=== PATIENT | female | born 1950 | race Caucasian/White ===

== ENCOUNTER 2017-01-22 10:46 | Emergency (ER) | payer OTHER, MEDICAID ==
[~2017-01-22] VITALS: Ht 152.4 cm; Wt 78.0 kg
[~2017-01-22 10:46] MED LIST: AMIT24CA9 PO; AZAT50 PO; BETH25 PO; C 50TAB PO; CALC500T42 PO; CHOL1TAB35 PO; DICY10CA12 PO; FURO1TAB62 PO; IPRASOL INH; LEVO.15 PO; LYRI100C PO; MULTCAP13 PO; NEXI40CA PO; OMEGCAP19 PO; PROC10TA PO; PROM2SUP RECTAL; SPIRCAP INH; SUCR1TAB PO; SYMB160A INH; TIZA4TAB PO; TRAM50TA PO; VENTAER INH; ZYRT10CA PO
[2017-01-22 11:28] VITALS: BP 101/69; PULSE 128; RESP 20; TEMP 100.3; O2SAT 97
[2017-01-22] MEDS ORDERED: SODIUM CHLOR 0.9% 1000 ML INJ 1,000 ML IV SCH (12:18)
--- NOTE | 2017-01-22 12:26 | PD ---
HPI Chief Complaint: Respiratory Symptoms Time Seen by Provider: 12:10 Travel History International Travel<30 days: No Contact w/Intl Traveler<30days: No Traveled to known affect area: No History of Present Illness HPI 66-year-old female complains of abdominal pain with nausea vomiting. Patient states that symptoms started 2 days ago. Patient states the abdominal pain is cramping pain and sharp pain diffuse over the abdomen. Patient denies any pain radiation. Patient states that she had fever at home. Patient denies any dysuria or frequency. Patient denies any vaginal discharge or bleeding. Patient has history of COPD and complains of shortness of breath for the past 2 days also. Patient states that she has coughing congestion for the past several days also. Patient has history of autoimmune hepatitis and on medication for that. Patient status post cholecystectomy and ovarian removal in the past. Patient has history of hypertension, diabetes, hyperlipidemia. PFSH Past Medical History Arthritis: Yes Asthma: No Autoimmune Disease: Yes (GRAVES, HEP B) Anxiety: Yes Depression: Yes Heart Rhythm Problems: No Cancer: Yes (CERVICAL x 2, 1984 and 1994) Cardiac Catheterization: Yes (OCT 2005) Cardiovascular Problems: Yes (HTN on meds) High Cholesterol: Yes Chemotherapy: No Chest Pain: Yes (none since cardiac cath) Congestive Heart Failure: No COPD: Yes Cerebrovascular Accident: No Diabetes: Yes (type 2) Diminished Hearing: No Endocrine: Yes Fibromyalgia: Yes Gastrointestinal Disorders: Yes GERD: Yes Genitourinary: Yes Headaches: Yes (DAILY) Hepatitis: Yes (AUTOIMMUNE HEP B) Hiatal Hernia: Yes Hypertension: No Immune Disorder: Yes Kidney Stones: No Musculoskeletal: Yes (CHRONIC BACK & NECK PAIN) Neurologic: Yes (BILATERAL LL NEUROPATHY) Psychiatric: Yes Reproductive: No Respiratory: Yes (copd) Immunizations Current: Yes Migraines: Yes Pneumonia: Yes Radiation Therapy: No Renal Failure: No Seizures: Yes Sickle Cell Disease: No Sleep Apnea: Yes (home cpap machine) Thyroid Disease: Yes (GRAVES DISEASE) Ulcer: No ?: Not Menopausal: Yes : 3 Para: 3 Tubal Ligation: Yes (1973) Past Surgical History Abdominal Surgery: Yes (CHOLECYSTECTOMY) Arteriovenous Shunt: No Body Medical Devices: plates and screws in head Cardiac Surgery: Yes (cardiac cath- no stents 2007) Cholecystectomy: Yes Ear Surgery: No Endocrine Surgery: No Eye Surgery: Yes (BILAT EYE SX TO RAISE LOWER LIDS) Genitourinary Surgery: No Gynecologic Surgery: Yes (RIGHT OVARY REMOVED) Insulin Pump: No Joint Replacement: Yes (L elbow 2013) Neurologic Surgery: Yes (CRANIOTOMY 1995, NERVE STIMULATOR 2004 removed 2013, 3 LEVEL CERVICAL FUSIO) Oral Surgery: No Pacemaker: No Thoracic Surgery: Yes (LEFT LUMPECTOMY 2000, BREAST NEEDLE ASPIRATION) Other Surgery: Yes (SINUS SURGERY WITH CRANIOTOMY) Family History Family Hypercholesterolemia: Yes (SISTER) Social History Alcohol Use: No Tobacco Use: No (QUIT 1995) Substance Use: No Allergies-Medications (Allergen,Severity, Reaction): Coded Allergies: bee venom protein (honey bee) (Unverified Allergy, Severe, DIFFICULTY BREATHING, 01/22/17) . divalproex sodium (Unverified Allergy, Severe, 01/22/17) REACTION NOT GIVEN house dust (Unverified Allergy, Severe, 01/22/17) loratadine (Unverified Allergy, Severe, 01/22/17) REACTION NIT GIVEN meperidine (Unverified Allergy, Severe, 01/22/17) REACTION NOT GIVEN oxcarbazepine (Unverified Allergy, Severe, 01/22/17) REACTION NOT GIVEN phenytoin (Unverified Allergy, Severe, 01/22/17) REACTION NOT GIVEN sumatriptan (Unverified Allergy, Intermediate, SOB, CHEST TIGHTNESS, ) topiramate (Unverified Allergy, Intermediate, Hives, 01/22/17) celecoxib (Unverified Allergy, Mild, PALPITATIONS, 01/22/17) amitriptyline (Unverified Allergy, Unknown, 01/22/17) chlordiazepoxide (Unverified Allergy, Unknown, 01/22/17) lamotrigine (Unverified Allergy, Unknown, 01/22/17) REACTION NOT GIVEN sertraline (Unverified Adverse Reaction, Intermediate, "SPACED OUT", ) acetaminophen (Unverified Adverse Reaction, Mild, CONSTIPATION, 01/22/17) levetiracetam (Unverified Adverse Reaction, Mild, "SPACED OUT", 01/22/17) oxycodone (Unverified Adverse Reaction, Mild, CONSTIPATION, 01/22/17) Uncoded Allergies: NSAIDS (Allergy, Severe, 01/22/17) .. combivent (Allergy, Severe, severe nausea and vomiting, 01/22/17) . ARTHROTEC (Allergy, Mild, 01/22/17) .. Reported Meds & Prescriptions Reported Meds & Active Scripts Active Reported Multi-Vitamin Daily (Multiple Vitamin) 1 Tab Tab 1 Tab PO DAILY Cymbalta DR (Duloxetine HCl) 60 Mg Capdr 60 Mg PO DAILY Gabapentin 600 Mg Tab 600 Mg PO TID Gabapentin 600 Mg Tab 600 Mg PO TID Gabapentin 600 Mg Tab 600 Mg PO BID Lisinopril 10 Mg Tab 10 Mg PO HS Urecholine (Bethanechol Chloride) 25 Mg Tab 25 Mg PO TID Tramadol (Tramadol HCl) 50 Mg Tab 100 Mg PO Q8HR Spiriva Handihaler (Tiotropium Inh) 18 Mcg Cap 18 Mcg INH DAILY 1 capsule = 18 mcg Synthroid (Levothyroxine Sodium) 150 Mcg Tab 150 Mcg PO DAILY Sucralfate 1 Gm Tab 1 Gm PO QID on empty stomach Prochlorperazine Maleate 10 Mg Tab 10 Mg PO TID PRN Rippey 3-6-9 Complex (Rippey 3 Fatty Acids-Rippey 6 FA) 1 Cap Cap 1 Cap PO BID Lyrica (Pregabalin) 100 Mg Cap 100 Mg PO TID Amitiza (Lubiprostone) 24 Mcg Cap 24 Mg PO BID Nexium (Esomeprazole DR) 40 Mg Capdr 40 Mg PO DAILY Dicyclomine (Dicyclomine HCl) 10 Mg Cap 10 Mg PO QID D 2000 (Cholecalciferol) 2,000 Unit Tab 5,000 Units PO DAILY Azathioprine 50 Mg Tab 150 Mg PO DAILY Hazardous agent use appropriate precautions for handling and disposal. C 500 (Ascorbic Acid) 500 Mg Tab 1 Tab PO BID Duoneb (Ipratropium-Albuterol Neb) 0.5-2.5 Mg/3 Ml Neb 1 Nebule INH Q4HR NEB PRN Ventolin Hfa 18 GM Inh (Albuterol Sulfate) 90 Mcg/Act Aer 2 Puff INH BID PRN Review of Systems General / Constitutional: No: Fever Eyes: No: Visual changes HENT: No: Headaches Cardiovascular: No: Chest Pain or Discomfort Respiratory: Positive: Shortness of Breath Gastrointestinal: Positive: Nausea, Vomiting, Abdominal Pain Genitourinary: No: Dysuria Musculoskeletal: No: Pain Skin: No Rash Neurologic: No: Weakness Psychiatric: No: Depression Endocrine: No: Polydipsia Hematologic/Lymphatic: No: Easy Bruising Physical Exam Narrative GENERAL: Well-nourished, well-developed patient. SKIN: Focused skin assessment warm/dry. HEAD: Normocephalic. EYES: No scleral icterus. No injection or drainage. NECK: Supple, trachea midline. No JVD or lymphadenopathy. CARDIOVASCULAR: Regular rate and rhythm without murmurs, gallops, or rubs. RESPIRATORY: Breath sounds equal bilaterally. No accessory muscle use. GASTROINTESTINAL: Abdomen soft, nondistended. Patient has moderate diffuse tenderness over the abdomen. No rebound tenderness. No mass. MUSCULOSKELETAL: No cyanosis, or edema. BACK: Nontender without obvious deformity. No CVA tenderness. Neurologic exam normal. Data Data Last Documented VS Vital Signs Date Time Temp Pulse Resp B/P (MAP) Pulse Ox O2 Delivery O2 Flow Rate FiO2 01/22/17 13:05 105 24 132/80 (97) 96 Room Air 01/22/17 11:28 100.3 Orders Orders Urinalysis - C+S If Indicated (01/22/17 11:06) Complete Blood Count With Diff (01/22/17 12:18) Comprehensive Metabolic Panel (01/22/17 12:18) Lipase (01/22/17 12:18) Prothrombin Time / Inr (Pt) (01/22/17 12:18) Act Partial Throm Time (Ptt) (01/22/17 12:18) Ct Abd/Pel W Iv Contrast(Rout) (01/22/17 12:18) Iv Access Insert/Monitor (01/22/17 12:18) Ecg Monitoring (01/22/17 12:18) Oximetry (01/22/17 12:18) Morphine Inj (Morphine Inj) (01/22/17 12:30) Ondansetron Inj (Zofran Inj) (01/22/17 12:30) Sodium Chlor 0.9% 1000 Ml Inj (Ns 1000 M (01/22/17 12:18) Sodium Chloride 0.9% Flush (Ns Flush) (01/22/17 12:30) Famotidine Inj (Pepcid Inj) (01/22/17 12:30) Influenzae A/B Antigen (01/22/17 12:37) Chest, Single Ap (01/22/17 12:37) Albuterol-Ipratropium Neb (Duoneb Neb) (01/22/17 12:45) Iohexol 350 Inj (Omnipaque 350 Inj) (01/22/17 13:40) Labs Laboratory Tests Test 01/22/17 12:40 White Blood Count 7.3 TH/MM3 Red Blood Count 4.40 MIL/MM3 Hemoglobin 13.7 GM/DL Hematocrit 40.5 % Mean Corpuscular Volume 92.0 FL Mean Corpuscular Hemoglobin 31.1 PG Mean Corpuscular Hemoglobin Concent 33.8 % Red Cell Distribution Width 13.4 % Platelet Count 166 TH/MM3 Mean Platelet Volume 10.8 FL Neutrophils (%) (Auto) 84.8 % Lymphocytes (%) (Auto) 6.6 % Monocytes (%) (Auto) 7.3 % Eosinophils (%) (Auto) 0.9 % Basophils (%) (Auto) 0.4 % Neutrophils # (Auto) 6.2 TH/MM3 Lymphocytes # (Auto) 0.5 TH/MM3 Monocytes # (Auto) 0.5 TH/MM3 Eosinophils # (Auto) 0.1 TH/MM3 Basophils # (Auto) 0.0 TH/MM3 CBC Comment DIFF FINAL Differential Comment Prothrombin Time 10.4 SEC Prothromb Time International Ratio 1.0 RATIO Activated Partial Thromboplast Time 26.7 SEC Blood Urea Nitrogen 17 MG/DL Creatinine 0.86 MG/DL Random Glucose 106 MG/DL Total Protein 7.4 GM/DL Albumin 3.8 GM/DL Calcium Level 9.1 MG/DL Alkaline Phosphatase 68 U/L Aspartate Amino Transf (AST/SGOT) 92 U/L Alanine Aminotransferase (ALT/SGPT) 79 U/L Total Bilirubin 0.4 MG/DL Sodium Level 140 MEQ/L Potassium Level 3.8 MEQ/L Chloride Level 105 MEQ/L Carbon Dioxide Level 23.8 MEQ/L Anion Gap 11 MEQ/L Estimat Glomerular Filtration Rate 66 ML/MIN Lipase 182 U/L MDM Medical Decision Making Medical Screen Exam Complete: Yes Emergency Medical Condition: Yes Interpretation(s) 13 38 PM. Last Impressions Chest X-Ray 01/22/17 2277 Signed Impressions: Service Date/Time: Sunday, January 22, 2017 12:50 - CONCLUSION: 1. No acute abnormality or significant interval change. Tomas Gutierrez MD 1338 PM. CBC within normal limits. CMP within normal limit. Patient is positive for influenza A antigen. 1408 p.m. Last Impressions Chest X-Ray 01/22/17 1237 Signed Impressions: Service Date/Time: Sunday, January 22, 2017 12:50 - CONCLUSION: 1. No acute abnormality or significant interval change. Tomas Gutierrez MD Abdomen/Pelvis CT 01/22/17 1218 Signed Impressions: Service Date/Time: Sunday, January 22, 2017 13:25 - CONCLUSION: 1. No acute findings in the abdomen or pelvis. 2. Mild diffusely decreased hepatic attenuation consistent with hepatic steatosis. 3. Status post cholecystectomy with mild stable CBD distention consistent with reservoir effect. 4. Additional stable ancillary findings, see above. Tomas Gutierrez MD Differential Diagnosis Differential diagnosis including gastroenteritis, gastritis, PUD, appendicitis, colitis, UTI, pyelonephritis, nephrolithiasis. Narrative Course 66-year-old female with abdominal pain, nausea vomiting. Normal saline solution 125 cc an hour. Pepcid 20 mg IV. Morphine 4 mg IV. Zofran 4 mg IV. Albuterol with Atrovent unit dose treatment times one. Diagnosis Primary Impression: Influenza A Additional Impressions: Abdominal pain Qualified Codes: R10.84 - Generalized abdominal pain Gastroenteritis COPD with acute exacerbation Patient Instructions: General Instructions Additional Instructions: Z-Jackson as needed for persistent productive cough. Fluid bed rest. Follow-up with personal physician. Return if worse. Use albuterol inhaler as needed for shortness of breath. Take medication as needed for nausea vomiting. Med/Other Pt SpecificInfo: Prescription(s) given Scripts Azithromycin (Zithromax Z-Jackson) 250 Mg Dspk 250 MG PO DIRECTED for Infection, #1 DSPK 0 Refills 500 MG (2 tabs) day 1, then 1 tab days 2-5. Prov: Og Funes MD 01/22/17 Ondansetron Odt (Zofran Odt) 4 Mg Tab 4 MG SL Q6HR Y for Nausea/Vomiting, #10 TAB 0 Refills Prov: Og Funes MD 01/22/17 [Phenergan W Codein] No Conflict Check 10 ML PO Q6HR for Cough, #120 Prov: Og Funes MD 12/9/17 Disposition: 01 DISCHARGE HOME Condition: Stable Og Funes MD Jan 22, 2017 12:26
[2017-01-22] MEDS ORDERED: ONDANSETRON HCL 4 MG/2 ML VIAL IVP ONE (12:30)
[2017-01-22] MEDS ORDERED: MORPHINE SULFATE 4 MG/ML INJ IV PUSH ONE (12:30)
[2017-01-22] MEDS ORDERED: FAMOTIDINE 20 MG/2 ML VIAL IV PUSH ONE (12:30)
[2017-01-22] MEDS ORDERED: SODIUM CHLORIDE 0.9% FLUSH 10 ML FLUSH IV FLUSH PRN (12:30)
[2017-01-22 12:44] VITALS: O2SAT 96
[2017-01-22] MEDS ORDERED: RESP: ALBUTEROL 2.5 MG/IPRATROPIUM 0.5 MG NEB (SCH) INH ONE (12:45)
[2017-01-22 12:51] LABS: AUTOMATED NEUTROPHIL # 6.2 TH/MM3 (1.8-7.7); BASOPHIL % 0.4 % (0.0-2.0); EOSINOPHIL # 0.1 TH/MM3 (0-0.4); EOSINOPHIL % 0.9 % (0.0-4.0); HEMATOCRIT 40.5 % (35.0-46.0); HEMO FLAGS DIFF FINAL; LYMPH % 6.6 % (9.0-44.0); LYMPHOCYTE # 0.5 TH/MM3 (1.0-4.8); MEAN CORPUSCULAR HEMOGLOBIN 31.1 PG (27.0-34.0); MEAN CORPUSCULAR HGB CONC 33.8 % (32.0-36.0); MONO % 7.3 % (0.0-8.0); NEUT % 84.8 % (16.0-70.0); PLATELET COUNT 166 TH/MM3 (150-450); RED CELL DISTRIBUTION WIDTH 13.4 % (11.6-17.2); WHITE BLOOD COUNT 7.3 TH/MM3 (4.0-11.0)
--- NOTE | 2017-01-22 12:59 | RADRPT ---
EXAM DATE/TIME: 01/22/2017 12:50 [facility] COMPARISON: CHEST SINGLE AP, January 03, 2015, 12:55. INDICATIONS : Short of breath, cough, chest pains MEDICAL HISTORY : Chronic obstructive pulmonary disease. SURGICAL HISTORY : None. ENCOUNTER: Initial ACUITY: 2 days PAIN SCORE: 5/10 LOCATION: Bilateral chest FINDINGS: A single view of the chest demonstrates the lungs to be symmetrically aerated without evidence of mas s, infiltrate or effusion. The cardiomediastinal contours are unremarkable. Lower cervical spinal fi xation hardware. Remainder of the exam is unchanged. CONCLUSION: 1. No acute abnormality or significant interval change. Tomas Gutierrez MD on January 22, 2017 at 12:56 Board Certified Radiologist. This report was verified electronically.
[2017-01-22 13:00] LABS: CHLORIDE 105 MEQ/L (98-107); POTASSIUM 3.8 MEQ/L (3.5-5.1); SODIUM (NA) 140 MEQ/L (136-145)
[2017-01-22 13:05] VITALS: BP 132/80; PULSE 105; RESP 24; O2SAT 96
[2017-01-22 13:06] LABS: ANION GAP 11 MEQ/L (5-15); BICARBONATE 23.8 MEQ/L (21.0-32.0); BLOOD UREA NITROGEN 17 MG/DL (7-18)
[2017-01-22 13:07] LABS: APTT (PATIENT) 26.7 SEC (24.3-30.1); PROTHROMBIN TIME - PATIENT 10.4 SEC (9.8-11.6)
[2017-01-22 13:09] LABS: ALT (GPT) 79 U/L (10-53); AST (GOT) 92 U/L (15-37); GLOMERULAR FILTRATION RATE 66 ML/MIN (>89)
[2017-01-22 13:10] LABS: TOTAL BILIRUBIN ADULT 0.4 MG/DL (0.2-1.0)
[2017-01-22 13:11] LABS: ALKALINE PHOSPHATASE 68 U/L (45-117)
[2017-01-22] MEDS ORDERED: IOHEXOL 350 MG/ML 10 ML VIAL (for RAD DIAG) IVCONTRAST ONE (13:40)
[2017-01-22 13:45] VITALS: BP 133/69; PULSE 106; RESP 20; TEMP 98.9; O2SAT 97
--- NOTE | 2017-01-22 13:47 | RADRPT ---
EXAM DATE/TIME: 01/22/2017 13:25 [facility] COMPARISON: CT ABDOMEN & PELVIS W CONTRAST, September 25, 2013, 1:16. INDICATIONS : Cough, congestion, abdominal pain, nausea, vomiting. IV CONTRAST: 80 cc Omnipaque 350 (iohexol) IV ORAL CONTRAST: No oral contrast ingested. RADIATION DOSE: 11.06 CTDIvol (mGy) MEDICAL HISTORY : Cardiovascular disease. Hypertension. Graves, neuropathy lower extremities, SURGICAL HISTORY : Craniotomy. Cholecystectomy.Cervical fusion, left lumpectomy, right ovary. ENCOUNTER: Initial ACUITY: 2 days PAIN SCALE: 10/10 LOCATION: abdominal TECHNIQUE: Volumetric scanning of the abdomen and pelvis was performed. Using automated exposure control and ad justment of the mA and/or kV according to patient size, radiation dose was kept as low as reasonably achievable to obtain optimal diagnostic quality images. DICOM format image data is available electro nically for review and comparison. FINDINGS: LOWER LUNGS: The visualized lower lungs are clear. LIVER: Mild diffuse decreased hepatic attenuation without evidence for volume loss or intrahepatic ductal di latation. Gallbladder surgically absent with stable prominence of the common bile duct, likely due to reservoir effect. SPLEEN: Normal size without lesion. PANCREAS: Within normal limits. KIDNEYS: Stable subcentimeter hypodense cystic lesion in the anterior mid left kidney which is too small to ch aracterize. Kidneys otherwise demonstrate symmetrical enhancement without evidence for radiopaque magda al calculi or hydronephrosis. ADRENAL GLANDS: Within normal limits. VASCULAR: Atherosclerotic calcifications of the distal abdominal aorta. BOWEL/MESENTERY: The stomach, small bowel, and colon demonstrate no acute abnormality. Appendix is visualized and norm al in appearance. There is no free intraperitoneal air or fluid. ABDOMINAL WALL: Small periumbilical anterior abdominal wall fat containing hernia. RETROPERITONEUM: There is no lymphadenopathy. BLADDER: No wall thickening or mass. REPRODUCTIVE: Within normal limits. INGUINAL: There is no lymphadenopathy or hernia. MUSCULOSKELETAL: Within normal limits for patient age. Interval removal of neurostimulator. CONCLUSION: 1. No acute findings in the abdomen or pelvis. 2. Mild diffusely decreased hepatic attenuation consistent with hepatic steatosis. 3. Status post cholecystectomy with mild stable CBD distention consistent with reservoir effect. 4. Additional stable ancillary findings, see above. Tomas Gutierrez MD on January 22, 2017 at 13:40 Board Certified Radiologist. This report was verified electronically.
[2017-01-22] MEDS ORDERED: GABA600T PO ×2 (13:52)
[2017-01-22] MEDS ORDERED: CYMB60CA PO (13:52)
[2017-01-22] MEDS ORDERED: LISI10TA3 PO (13:52)
[2017-01-22] MEDS ORDERED: MULT-65 PO (13:52)
[2017-01-22] MEDS ORDERED: ZITHTAB PO (14:16)
[2017-01-22] MEDS ORDERED: PHENERGAN W CODEIN PO (14:16)
[2017-01-22] MEDS ORDERED: ZOFR4TAB3 SL (14:16)
[2017-01-22 14:45] VITALS: BP 117/74
== END 2017-01-22 14:50 | disposition home or self-care (01) ==
LOC: PHED 10:46
DX: J09.X2 Influenza due to identified novel influenza A virus with other respiratory manifestations (principal); R10.84 Generalized abdominal pain; K52.9 Noninfective gastroenteritis and colitis, unspecified; J44.1 Chronic obstructive pulmonary disease with (acute) exacerbation; R50.9 Fever, unspecified; K75.4 Autoimmune hepatitis; I10 Essential (primary) hypertension; E11.9 Type 2 diabetes mellitus without complications; E78.00 Pure hypercholesterolemia, unspecified; F41.8 Other specified anxiety disorders; M79.7 Fibromyalgia; K21.9 Gastro-esophageal reflux disease without esophagitis; G62.9 Polyneuropathy, unspecified
CPT/HCPCS: 71010; 74177; 80053; 83690; 85025; 85610; 85730; 87804; 94640; 96361; 96374; 96375; 99285; J2270; J2405; J7030; Q9967

== ENCOUNTER 2017-03-02 13:54 | Observation (INO) | payer MEDICAID, OTHER ==
[~2017-03-02] VITALS: Ht 152.4 cm; Wt 85.0 kg
[~2017-03-02 13:54] MED LIST changes: -CALC500T42 PO; +CYMB60CA PO; -FURO1TAB62 PO; +GABA600T PO; +LISI10TA3 PO; +MULT-65 PO; -MULTCAP13 PO; +PHENERGAN W CODEIN PO; -PROM2SUP RECTAL; -SYMB160A INH; -TIZA4TAB PO; +ZITHTAB PO; +ZOFR4TAB3 SL; -ZYRT10CA PO
[2017-03-02 13:58] VITALS: BP 85/54; PULSE 56; RESP 16; TEMP 97.9; O2SAT 98
--- NOTE | 2017-03-02 14:13 | PD ---
HPI Chief Complaint: Dizziness Time Seen by Provider: 13:59 Travel History International Travel<30 days: No Contact w/Intl Traveler<30days: No Traveled to known affect area: No History of Present Illness HPI This 66-year-old female was not home today when she started feeling lightheaded. She checked her blood pressure several times as consistently around 80/40. She has on medication for high blood pressure. She had some diarrhea yesterday and vomited twice this morning. She is not aware of fever or chills. She has a history of COPD has had a bit of a cough. She feels weak all over. He is not having chest pain. She has some epigastric discomfort. She has a history of hypertension his on lisinopril. She also takes propranolol for headache. She did take propranolol this morning. She believes it is 20 mg PFSH Past Medical History Arthritis: Yes Asthma: No Autoimmune Disease: Yes (GRAVES, HEP B) Anxiety: Yes Depression: Yes Heart Rhythm Problems: No Cancer: Yes (CERVICAL x 2, 1984 and 1994) Cardiac Catheterization: Yes (OCT 2005) Cardiovascular Problems: Yes (HTN on meds) High Cholesterol: Yes Chemotherapy: No Chest Pain: Yes (none since cardiac cath) Congestive Heart Failure: No COPD: Yes Cerebrovascular Accident: No Diabetes: Yes (type 2) Patient Takes Glucophage: No Diminished Hearing: No Endocrine: Yes Fibromyalgia: Yes Gastrointestinal Disorders: Yes GERD: Yes Genitourinary: Yes Headaches: Yes (DAILY) Hepatitis: Yes (AUTOIMMUNE HEP B) Hiatal Hernia: Yes Hypertension: Yes Immune Disorder: Yes Kidney Stones: No Medical other: Yes (REFLUX,FIBROMYALGIA, SPINAL STENOSIS) Musculoskeletal: Yes (CHRONIC BACK & NECK PAIN) Neurologic: Yes (BILATERAL LL NEUROPATHY) Psychiatric: Yes Reproductive: No Respiratory: Yes (copd) Immunizations Current: Yes Migraines: Yes Pneumonia: Yes Radiation Therapy: No Renal Failure: No Seizures: Yes Sickle Cell Disease: No Sleep Apnea: Yes (home cpap machine) Thyroid Disease: Yes (GRAVES DISEASE) Ulcer: No Tetanus Vaccination: Unknown Influenza Vaccination: No ?: Not Menopausal: Yes : 3 Para: 3 Tubal Ligation: Yes (1973) Past Surgical History Abdominal Surgery: Yes (CHOLECYSTECTOMY) Arteriovenous Shunt: No Body Medical Devices: plates and screws in head Cardiac Surgery: Yes (cardiac cath- no stents 2007) Cholecystectomy: Yes Ear Surgery: No Endocrine Surgery: No Eye Surgery: Yes (BILAT EYE SX TO RAISE LOWER LIDS) Genitourinary Surgery: No Gynecologic Surgery: Yes (RIGHT OVARY REMOVED) Insulin Pump: No Joint Replacement: Yes (L elbow 2013) Neurologic Surgery: Yes (CRANIOTOMY 1995, NERVE STIMULATOR 2005 removed 2013, 3 LEVEL CERVICAL FUSIO) Oral Surgery: No Pacemaker: No Thoracic Surgery: Yes (LEFT LUMPECTOMY 2000, BREAST NEEDLE ASPIRATION, BREAST ERDUCTION) Other Surgery: Yes (SINUS SURGERY WITH CRANIOTOMY, NEURO STIMULATOR IMPLANTAION /REMOVAL) Family History Family Hypercholesterolemia: Yes (SISTER) Social History Alcohol Use: No Tobacco Use: No (QUIT 1995) Substance Use: No Allergies-Medications (Allergen,Severity, Reaction): Coded Allergies: bee venom protein (honey bee) (Unverified Allergy, Severe, DIFFICULTY BREATHING, 01/22/17) . divalproex sodium (Unverified Allergy, Severe, 01/22/17) REACTION NOT GIVEN house dust (Unverified Allergy, Severe, 01/22/17) loratadine (Unverified Allergy, Severe, 01/22/17) REACTION NIT GIVEN meperidine (Unverified Allergy, Severe, 01/22/17) REACTION NOT GIVEN oxcarbazepine (Unverified Allergy, Severe, 01/22/17) REACTION NOT GIVEN phenytoin (Unverified Allergy, Severe, 01/22/17) REACTION NOT GIVEN sumatriptan (Unverified Allergy, Intermediate, SOB, CHEST TIGHTNESS, ) topiramate (Unverified Allergy, Intermediate, Hives, 01/22/17) celecoxib (Unverified Allergy, Mild, PALPITATIONS, 01/22/17) amitriptyline (Unverified Allergy, Unknown, 01/22/17) chlordiazepoxide (Unverified Allergy, Unknown, 01/22/17) lamotrigine (Unverified Allergy, Unknown, 01/22/17) REACTION NOT GIVEN sertraline (Unverified Adverse Reaction, Intermediate, "SPACED OUT", ) acetaminophen (Unverified Adverse Reaction, Mild, CONSTIPATION, 01/22/17) levetiracetam (Unverified Adverse Reaction, Mild, "SPACED OUT", 01/22/17) oxycodone (Unverified Adverse Reaction, Mild, CONSTIPATION, 01/22/17) Uncoded Allergies: NSAIDS (Allergy, Severe, 01/22/17) .. combivent (Allergy, Severe, severe nausea and vomiting, 01/22/17) . ARTHROTEC (Allergy, Mild, 01/22/17) .. Reported Meds & Prescriptions Reported Meds & Active Scripts Active Zofran Odt (Ondansetron Odt) 4 Mg Tab 4 Mg SL Q6HR PRN Reported Multi-Vitamin Daily (Multiple Vitamin) 1 Tab Tab 1 Tab PO DAILY Cymbalta DR (Duloxetine HCl) 60 Mg Capdr 60 Mg PO DAILY Gabapentin 600 Mg Tab 600 Mg PO TID Lisinopril 10 Mg Tab 10 Mg PO HS Tramadol (Tramadol HCl) 50 Mg Tab 100 Mg PO Q8HR Synthroid (Levothyroxine Sodium) 150 Mcg Tab 150 Mcg PO DAILY Sucralfate 1 Gm Tab 1 Gm PO QID on empty stomach Prochlorperazine Maleate 10 Mg Tab 10 Mg PO TID PRN Nexium (Esomeprazole DR) 40 Mg Capdr 40 Mg PO DAILY Dicyclomine (Dicyclomine HCl) 10 Mg Cap 10 Mg PO QID D 2000 (Cholecalciferol) 2,000 Unit Tab 5,000 Units PO DAILY Azathioprine 50 Mg Tab 150 Mg PO DAILY Hazardous agent use appropriate precautions for handling and disposal. C 500 (Ascorbic Acid) 500 Mg Tab 1 Tab PO BID Duoneb (Ipratropium-Albuterol Neb) 0.5-2.5 Mg/3 Ml Neb 1 Nebule INH Q4HR NEB PRN Ventolin Hfa 18 GM Inh (Albuterol Sulfate) 90 Mcg/Act Aer 2 Puff INH BID PRN Review of Systems General / Constitutional: No: Fever, Chills Eyes: No: Diploplia HENT: Positive: Headaches Cardiovascular: No: Chest Pain or Discomfort, Palpitations Respiratory: No: Cough, Shortness of Breath Gastrointestinal: Positive: Vomiting, Diarrhea Skin: No Rash Neurologic: Positive: Weakness, Dizziness Psychiatric: No: Anxiety Hematologic/Lymphatic: No: Easy Bruising Physical Exam Narrative GENERAL: Female. On arrival her heart rate as 60 in the blood pressures 80/40 SKIN: Focused skin assessment warm/dry. HEAD: Atraumatic. Normocephalic. EYES: Pupils equal and round. No scleral icterus. No injection or drainage. ENT: No nasal bleeding or discharge. Mucous membranes pink and moist. NECK: Trachea midline. No JVD. CARDIOVASCULAR: Regular rate and rhythm. No murmur appreciated. RESPIRATORY: No accessory muscle use. Clear to auscultation. Breath sounds equal bilaterally. GASTROINTESTINAL: Abdomen soft, non-tender, nondistended. Hepatic and splenic margins not palpable. Rectal exam shows brown stool with guaiac negative MUSCULOSKELETAL: No obvious deformities. No clubbing. No cyanosis. No edema. NEUROLOGICAL: Awake and alert. No obvious cranial nerve deficits. Motor grossly within normal limits. Normal speech. PSYCHIATRIC: Appropriate mood and affect; insight and judgment normal. Data Data Last Documented VS Vital Signs Date Time Temp Pulse Resp B/P (MAP) Pulse Ox O2 Delivery O2 Flow Rate FiO2 03/02/17 15:55 60 16 100/48 (65) 98 Room Air 03/02/17 13:58 97.9 Orders Orders Complete Blood Count With Diff (03/02/17 14:10) Comprehensive Metabolic Panel (03/02/17 14:10) Ua Includes Microscopic (03/02/17 14:10) Chest, Single Ap (03/02/17 14:10) Albuterol-Ipratropium Neb (Duoneb Neb) (03/02/17 14:15) Sodium Chlor 0.9% 1000 Ml Inj (Ns 1000 M (03/02/17 14:15) Lipase (03/02/17 14:10) Electrocardiogram (03/02/17 14:13) Troponin I (03/02/17 14:13) Sodium Chlor 0.9% 1000 Ml Inj (Ns 1000 M (03/02/17 16:00) Labs Laboratory Tests Test 03/02/17 14:41 White Blood Count 5.9 TH/MM3 Red Blood Count 3.53 MIL/MM3 Hemoglobin 11.0 GM/DL Hematocrit 33.5 % Mean Corpuscular Volume 95.1 FL Mean Corpuscular Hemoglobin 31.1 PG Mean Corpuscular Hemoglobin Concent 32.7 % Red Cell Distribution Width 15.7 % Platelet Count 388 TH/MM3 Mean Platelet Volume 8.3 FL Neutrophils (%) (Auto) 67.0 % Lymphocytes (%) (Auto) 21.2 % Monocytes (%) (Auto) 7.5 % Eosinophils (%) (Auto) 2.0 % Basophils (%) (Auto) 2.3 % Neutrophils # (Auto) 4.1 TH/MM3 Lymphocytes # (Auto) 1.2 TH/MM3 Monocytes # (Auto) 0.4 TH/MM3 Eosinophils # (Auto) 0.1 TH/MM3 Basophils # (Auto) 0.1 TH/MM3 CBC Comment DIFF FINAL Differential Comment Blood Urea Nitrogen 19 MG/DL Creatinine 0.86 MG/DL Random Glucose 66 MG/DL Total Protein 6.3 GM/DL Albumin 3.0 GM/DL Calcium Level 8.1 MG/DL Alkaline Phosphatase 75 U/L Aspartate Amino Transf (AST/SGOT) 14 U/L Alanine Aminotransferase (ALT/SGPT) 16 U/L Total Bilirubin 0.2 MG/DL Sodium Level 137 MEQ/L Potassium Level 4.0 MEQ/L Chloride Level 103 MEQ/L Carbon Dioxide Level 25.8 MEQ/L Anion Gap 8 MEQ/L Estimat Glomerular Filtration Rate 66 ML/MIN Troponin I LESS THAN 0.02 NG/ML Lipase 160 U/L MDM Medical Decision Making Medical Screen Exam Complete: Yes Emergency Medical Condition: Yes Medical Record Reviewed: Yes Differential Diagnosis Differential includes dehydration, allergic reaction, GI bleed Narrative Course EKG shows sinus bradycardia rate of 54 without acute changes. Hemoglobin as 11 with a white count of 5.9. Sodium 137 potassium 4.0. BUN 19 creatinine 0.6 patient has been given IV fluid in her blood pressures improved from 80/40 to 100/50. I suspect the low blood pressures secondary to excessive medications heart rate as slow. I do not see any evidence of sepsis. He does have multiple allergies but does not recall any exposure has not had any rash or other symptoms. He did have some vomiting in the diarrhea may have some mild dehydration aggravating blood pressure Diagnosis Primary Impression: Dehydration Admitting Information Admitting Physician Requests: Admit Disposition: 01 DISCHARGE HOME Condition: Stable Jason Tao MD Mar 02, 2017 14:13
[2017-03-02] MEDS ORDERED: SODIUM CHLOR 0.9% 1000 ML INJ 1,000 ML IV ONE ×2 (14:15→16:00)
[2017-03-02] MEDS ORDERED: RESP: ALBUTEROL 2.5 MG/IPRATROPIUM 0.5 MG NEB (SCH) NEB ONE (14:15)
[2017-03-02 14:47] LABS: AUTOMATED NEUTROPHIL # 4.1 TH/MM3 (1.8-7.7); BASOPHIL # 0.1 TH/MM3 (0-0.2); BASOPHIL % 2.3 % (0.0-2.0); EOSINOPHIL # 0.1 TH/MM3 (0-0.4); HEMATOCRIT 33.5 % (35.0-46.0); LYMPH % 21.2 % (9.0-44.0); LYMPHOCYTE # 1.2 TH/MM3 (1.0-4.8); MEAN CELL VOLUME 95.1 FL (80.0-100.0); MEAN CORPUSCULAR HEMOGLOBIN 31.1 PG (27.0-34.0); MEAN CORPUSCULAR HGB CONC 32.7 % (32.0-36.0); MEAN PLATELET VOLUME 8.3 FL (7.0-11.0); MONO % 7.5 % (0.0-8.0); MONOCYTE # 0.4 TH/MM3 (0-0.9); PLATELET COUNT 388 TH/MM3 (150-450); RED BLOOD COUNT 3.53 MIL/MM3 (4.00-5.30); RED CELL DISTRIBUTION WIDTH 15.7 % (11.6-17.2); WHITE BLOOD COUNT 5.9 TH/MM3 (4.0-11.0)
--- NOTE | 2017-03-02 14:53 | RADRPT ---
EXAM DATE/TIME: 03/02/2017 14:45 [facility] COMPARISON: CHEST SINGLE AP, January 22, 2017, 12:50. INDICATIONS : Short of breath MEDICAL HISTORY : Cardiovascular disease. Hypertension. Graves, neuropathy lower extremities SURGICAL HISTORY : Fusion, cervical. Left lumpectomy ENCOUNTER: Initial ACUITY: 2 days PAIN SCORE: 0/10 LOCATION: Bilateral chest FINDINGS: A single view of the chest demonstrates the lungs to be symmetrically aerated without evidence of mas s, infiltrate or effusion. The cardiomediastinal contours are unremarkable. Osseous structures are intact. CONCLUSION: Mild diffuse interstitial prominence the lungs likely related to smoking. Pedro Crawford MD on March 02, 2017 at 14:50 Board Certified Radiologist. This report was verified electronically.
[2017-03-02 14:57] LABS: CHLORIDE 103 MEQ/L (98-107); SODIUM (NA) 137 MEQ/L (136-145)
[2017-03-02 15:01] LABS: BICARBONATE 25.8 MEQ/L (21.0-32.0); BLOOD UREA NITROGEN 19 MG/DL (7-18); CALCIUM 8.1 MG/DL (8.5-10.1); GLUCOSE,RANDOM 66 MG/DL (74-106); LIPASE 160 U/L (73-393)
[2017-03-02 15:04] LABS: ALT (GPT) 16 U/L (10-53); AST (GOT) 14 U/L (15-37); CREATININE 0.86 MG/DL (0.50-1.00); GLOMERULAR FILTRATION RATE 66 ML/MIN (>89)
[2017-03-02 15:06] LABS: TOTAL BILIRUBIN ADULT 0.2 MG/DL (0.2-1.0); TOTAL PROTEIN 6.3 GM/DL (6.4-8.2)
[2017-03-02 15:07] LABS: ALKALINE PHOSPHATASE 75 U/L (45-117)
[2017-03-02 15:55] VITALS: BP 100/48; PULSE 60; RESP 16; O2SAT 98
[2017-03-02] MEDS ORDERED: DEXTROSE 50% IN WATER 50 ML VIAL(D50) IV PUSH PRN (16:45)
[2017-03-02] MEDS ORDERED: NALOXONE HCL 0.4 MG/ML AMP IV PUSH PRN (16:45)
[2017-03-02] MEDS ORDERED: SODIUM CHLORIDE 0.9% FLUSH 10 ML FLUSH IV FLUSH PRN (16:45)
[2017-03-02] MEDS ORDERED: ACETAMINOPHEN 325 MG TAB PO PRN (16:45)
[2017-03-02] MEDS ORDERED: GLUCAGON 1 MG/ML VIAL OTHER PRN (16:45)
[2017-03-02] MEDS ORDERED: ONDANSETRON HCL 4 MG/2 ML VIAL IVP PRN (16:45)
[2017-03-02] MEDS ORDERED: RESP: ALBUTEROL 2.5 MG/IPRATROPIUM 0.5 MG NEB (PRN) INH (16:45)
[2017-03-02] MEDS ORDERED: MAGNESIUM HYDROXIDE SUSP 30 ML CUP PO PRN (16:45)
[2017-03-02 16:58] LABS: BILIRUBIN, URINE NEG (NEG); BLOOD, URINE NEG (NEG); GLUCOSE,URINE NEG (NEG); KETONE, URINE NEG (NEG); NITRITE,URINE NEG (NEG); URINE LEUKOCYTE ESTERASE NEG (NEG)
[2017-03-02] MEDS: SODIUM CHLOR 0.9% 1000 ML INJ 1,000 ML IV SCH (17:00)
[2017-03-02] MEDS: INSULIN ASPART SUPPLEMENTAL SCALE SQ SCH ×2 (17:00→20:46)
--- NOTE | 2017-03-02 17:01 | HHI.HP ---
[facility] Benjamin Collins M.D. Admission Diagnosis DEHYDRATION, ADVERSE MEDICATION REACTION Diagnoses: Chief Complaint: Weakness Travel History International Travel<30 Days: No Contact w/Intl Traveler <30 Da: No Traveled to Known Affected Are: No History of Present Illness This patient is a 66-year-old female with a history of hypertension and diabetes. She also has Graves' disease and is status post radiation for thyroid. She says she had one day of lightheadedness and checked her blood pressure at home. Blood pressure was 80/40. She normally takes blood pressure medications including lisinopril. He and periodically takes propanolol for headache. She did take the medicine this morning because she woke up with a headache. Last night she had some diarrhea. She notes no other difficulties. She's not had fever or chills. And the patient has come to the emergency room for further evaluation due to persistent dizziness. Her blood pressure was quite low with 100/48. Patient was very dizzy. Labs are otherwise unremarkable. She has no pain complaint at this time. She is recommended for observation due to low blood pressure with dizziness Review of Systems Constitutional: COMPLAINS OF: Dizziness, DENIES: Diaphoretic episodes, Fatigue , Fever, Weight gain, Chills, Change in appetite, Night Sweats Endocrine: DENIES: Abnorml menstrual pattern, Heat/cold intolerance, Polydipsia , Polyuria, Polyphagia Eyes: DENIES: Blurred vision, Diplopia, Eye inflammation, Eye pain, Vision loss , Photosensitivity, Double Vision Ears, nose, mouth, throat: DENIES: Tinnitus, Hearing loss, Vertigo, Nasal discharge, Oral lesions, Throat pain, Hoarseness, Ear Pain, Running Nose, Epistaxis, Sinus Pain, Toothache, Odynophagia Respiratory: DENIES: Apneas, Cough, Snoring, Wheezing, Hemoptysis, Sputum production, Shortness of breath Cardiovascular: DENIES: Chest pain, Palpitations, Syncope, Dyspnea on Exertion , PND, Lower Extremity Edema, Orthopnea, Claudication Gastrointestinal: COMPLAINS OF: Diarrhea, DENIES: Abdominal pain, Black stools , Bloody stools, Constipation, Nausea, Vomiting, Difficulty Swallowing, Anorexia Genitourinary: DENIES: Abnormal vaginal bleeding, Dysmenorrhea, Dyspareunia, Sexual dysfunction, Urinary frequency, Urinary incontinence, Urgency, Hematuria , Dysuria, Nocturia, Vaginal discharge Musculoskeletal: DENIES: Joint pain, Muscle aches, Stiffness, Joint Swelling, Back pain, Neck pain Integumentary: DENIES: Abnormal pigmentation, Pruritus, Rash, Nail changes, Breast masses, Breast skin changes, Nipple discharge Hematologic/lymphatic: DENIES: Bruising, Lymphadenopathy Immunologic/allergic: DENIES: Eczema, Urticaria Neurologic: DENIES: Abnormal gait, Headache, Localized weakness, Paresthesias, Seizures, Speech Problems, Tremor, Poor Balance Psychiatric: DENIES: Anxiety, Confusion, Mood changes, Depression, Hallucinations, Agitation, Suicidal Ideation, Homicidal Ideation, Delusions Except as stated in HPI: all other systems reviewed are Neg Past Family Social History Past Medical History Hypertension Hypothyroidism Dyspepsia Fibromyalgia COPD Diabetes mellitus type 2 Autoimmune hepatitis Chronic headache Past Surgical History Back surgery, neck fusion, cholecystectomy Craniotomy Nerve stimulator placed and removed Reported Medications Reviewed in the EMR, no new medications Allergies: Coded Allergies: bee venom protein (honey bee) (Unverified Allergy, Severe, DIFFICULTY BREATHING, 01/22/17) . divalproex sodium (Unverified Allergy, Severe, 01/22/17) REACTION NOT GIVEN house dust (Unverified Allergy, Severe, 01/22/17) loratadine (Unverified Allergy, Severe, 01/22/17) REACTION NIT GIVEN meperidine (Unverified Allergy, Severe, 01/22/17) REACTION NOT GIVEN oxcarbazepine (Unverified Allergy, Severe, 01/22/17) REACTION NOT GIVEN phenytoin (Unverified Allergy, Severe, 01/22/17) REACTION NOT GIVEN sumatriptan (Unverified Allergy, Intermediate, SOB, CHEST TIGHTNESS, ) topiramate (Unverified Allergy, Intermediate, Hives, 01/22/17) celecoxib (Unverified Allergy, Mild, PALPITATIONS, 01/22/17) amitriptyline (Unverified Allergy, Unknown, 01/22/17) chlordiazepoxide (Unverified Allergy, Unknown, 01/22/17) lamotrigine (Unverified Allergy, Unknown, 01/22/17) REACTION NOT GIVEN sertraline (Unverified Adverse Reaction, Intermediate, "SPACED OUT", ) acetaminophen (Unverified Adverse Reaction, Mild, CONSTIPATION, 01/22/17) levetiracetam (Unverified Adverse Reaction, Mild, "SPACED OUT", 01/22/17) oxycodone (Unverified Adverse Reaction, Mild, CONSTIPATION, 01/22/17) Uncoded Allergies: NSAIDS (Allergy, Severe, 01/22/17) .. combivent (Allergy, Severe, severe nausea and vomiting, 01/22/17) . ARTHROTEC (Allergy, Mild, 01/22/17) .. Active Ordered Medications Reviewed in the EMR Family History Mother had hypertension Social History Quit tobacco 20 years ago, no alcohol, lives with her Physical Exam Vital Signs Vital Signs Date Time Temp Pulse Resp B/P (MAP) Pulse Ox O2 Delivery O2 Flow Rate FiO2 03/02/17 15:55 60 16 100/48 (65) 98 Room Air 03/02/17 13:58 97.9 56 16 85/54 (64) 98 Physical Exam GENERAL: This is a well-nourished, well-developed patient, in no apparent distress. SKIN: No rashes, ecchymoses or lesions. Cool and dry. HEAD: Atraumatic. Normocephalic. No temporal or scalp tenderness. EYES: exopthalmus, Pupils equal round and reactive. Extraocular motions intact. No scleral icterus. No injection or drainage. ENT: Nose without bleeding, purulent drainage or septal hematoma. Throat without erythema, tonsillar hypertrophy or exudate. Uvula midline. Airway patent. NECK: Trachea midline. No JVD or lymphadenopathy. Supple, nontender, no meningeal signs. CARDIOVASCULAR: Sinus bradycardia without murmurs, gallops, or rubs. RESPIRATORY: Clear to auscultation. Breath sounds equal bilaterally. No wheezes , rales, or rhonchi. GASTROINTESTINAL: Abdomen soft, non-tender, nondistended. No hepato-splenomegaly , or palpable masses. No guarding. MUSCULOSKELETAL: Extremities without clubbing, cyanosis, or edema. No joint tenderness, effusion, or edema noted. No calf tenderness. Negative Homans sign bilaterally. NEUROLOGICAL: Awake and alert. Cranial nerves II through XII intact. Motor and sensory grossly within normal limits. Five out of 5 muscle strength in all muscle groups. Normal speech. Laboratory Laboratory Tests Test 03/02/17 14:41 03/02/17 16:45 White Blood Count 5.9 Red Blood Count 3.53 Hemoglobin 11.0 Hematocrit 33.5 Mean Corpuscular Volume 95.1 Mean Corpuscular Hemoglobin 31.1 Mean Corpuscular Hemoglobin Concent 32.7 Red Cell Distribution Width 15.7 Platelet Count 388 Mean Platelet Volume 8.3 Neutrophils (%) (Auto) 67.0 Lymphocytes (%) (Auto) 21.2 Monocytes (%) (Auto) 7.5 Eosinophils (%) (Auto) 2.0 Basophils (%) (Auto) 2.3 Neutrophils # (Auto) 4.1 Lymphocytes # (Auto) 1.2 Monocytes # (Auto) 0.4 Eosinophils # (Auto) 0.1 Basophils # (Auto) 0.1 CBC Comment DIFF FINAL Differential Comment Blood Urea Nitrogen 19 Creatinine 0.86 Random Glucose 66 Total Protein 6.3 Albumin 3.0 Calcium Level 8.1 Alkaline Phosphatase 75 Aspartate Amino Transf (AST/SGOT) 14 Alanine Aminotransferase (ALT/SGPT) 16 Total Bilirubin 0.2 Sodium Level 137 Potassium Level 4.0 Chloride Level 103 Carbon Dioxide Level 25.8 Anion Gap 8 Estimat Glomerular Filtration Rate 66 Troponin I LESS THAN 0.02 Lipase 160 Result Diagram: 03/02/17 1441 03/02/17 1441 Imaging Last Impressions Chest X-Ray 03/02/17 1410 Signed Impressions: Service Date/Time: Thursday, March 02, 2017 14:45 - CONCLUSION: Mild diffuse interstitial prominence the lungs likely related to smoking. Pedro Crawford MD Septic Shock Reassessment Septic shock perfusion: reassessment completed Caprini VTE Risk Assessment Caprini VTE Risk Assessment: Mod/High Risk (score >= 2) Caprini Risk Assessment Model Point Value = 1 Point Value = 2 Point Value = 3 Point Value = 5 Age 41-60 Minor surgery BMI > 25 kg/m2 Swollen legs Varicose veins or History of unexplained or recurrent spontaneous Oral contraceptives or hormone replacement Sepsis (< 1 month) Serious lung disease, including pneumonia (< 1 month) Abnormal pulmonary function Acute myocardial infarction Congestive heart failure (< 1 month) History of inflammatory bowel disease Medical patient at bed rest Age 61-74 Arthroscopic surgery Major open surgery (> 45 min) Laparoscopic surgery (> 45 min) Malignancy Confined to bed (> 72 hours) Immobilizing plaster cast Central venous access Age >= 75 History of VTE Family history of VTE Factor V Leiden Prothrombin [id number] Lupus anticoagulant Anticardiolipin antibodies Elevated serum homocysteine Heparin-induced thrombocytopenia Other congenital or acquired thrombophilia Stroke (< 1 month) Elective arthroplasty Hip, pelvis, or leg fracture Acute spinal cord injury (< 1 month) Prophylaxis Regimen Total Risk Factor Score Risk Level Prophylaxis Regimen 0-1 Low Early ambulation 2 Moderate Order ONE of the following: *Sequential Compression Device (SCD) *Heparin 5000 units SQ BID 3-4 Higher Order ONE of the following medications: *Heparin 5000 units SQ TID *Enoxaparin/Lovenox 40 mg SQ daily (WT < 150 kg, CrCl > 30 mL/min) *Enoxaparin/Lovenox 30 mg SQ daily (WT < 150 kg, CrCl > 10-29 mL/min) *Enoxaparin/Lovenox 30 mg SQ BID (WT < 150 kg, CrCl > 30 mL/min) AND/OR *Sequential Compression Device (SCD) 5 or more Highest Order ONE of the following medications: *Heparin 5000 units SQ TID (Preferred with Epidurals) *Enoxaparin/Lovenox 40 mg SQ daily (WT < 150 kg, CrCl > 30 mL/min) *Enoxaparin/Lovenox 30 mg SQ daily (WT < 150 kg, CrCl > 10-29 mL/min) *Enoxaparin/Lovenox 30 mg SQ BID (WT < 150 kg, CrCl > 30 mL/min) AND *Sequential Compression Device (SCD) Assessment and Plan Problem List: (1) Dehydration ICD Code: E86.0 - Dehydration Status: Acute Plan: Patient appears dehydrated and is hypotensive and is probably orthostatic Will continue with IV hydration and hold her home blood pressure medications Was 85/54 and appears to have improved with IV hydration which we will continue overnight (2) Autoimmune hepatitis ICD Code: K75.4 - Autoimmune hepatitis Status: Chronic (3) COPD (chronic obstructive pulmonary disease) ICD Code: J44.9 - Chronic obstructive pulmonary disease, unspecified Status: Acute Assessment and Plan Plan of care to be determined by Hospital course Code Status Full code Discussed Condition With Patient, Cynthia Villegas M.D., MD Mar 02, 2017 17:01
[2017-03-02 17:19] LABS: SQUAMOUS EPITHELIAL CELL URINE 0-5 /hpf (0-5); URINE COLOR YELLOW (YELLW/STRAW)
[2017-03-02 17:20] LABS: RENAL EPITHELIAL CELLS 0-5 /hpf
[2017-03-02 17:45] VITALS: BP 111/71; PULSE 56; RESP 20; TEMP 97.1; O2SAT 100
[2017-03-02] MEDS: DICYCLOMINE HCL 10 MG CAP PO SCH ×2 (18:07→20:47)
[2017-03-02] MEDS: SUCRALFATE 1 GM TAB PO SCH ×2 (18:07→20:47)
[2017-03-02] MEDS: GABAPENTIN 300 MG CAP PO SCH (18:07)
[2017-03-02 20:00] VITALS: BP 124/57; PULSE 65; RESP 20; TEMP 97.5; O2SAT 97
[2017-03-02] MEDS: SODIUM CHLORIDE 0.9% FLUSH 10 ML FLUSH IV FLUSH SCH (20:42)
[2017-03-02] MEDS: traMADol HCL 50 MG TAB PO SCH (20:47)
[2017-03-03] VITALS: BP 134/65; PULSE 70; RESP 20; TEMP 97.9; O2SAT 96
[2017-03-03] MEDS: SODIUM CHLOR 0.9% 1000 ML INJ 1,000 ML IV SCH (04:16)
[2017-03-03] MEDS ORDERED: LEVOTHYROXINE SODIUM 150 MCG TAB PO SCH (06:00)
[2017-03-03] MEDS: traMADol HCL 50 MG TAB PO SCH (06:00)
[2017-03-03 06:13] LABS: AUTOMATED NEUTROPHIL # 3.3 TH/MM3 (1.8-7.7); BASOPHIL % 0.5 % (0.0-2.0); EOSINOPHIL # 0.1 TH/MM3 (0-0.4); EOSINOPHIL % 2.1 % (0.0-4.0); HEMATOCRIT 34.7 % (35.0-46.0); HEMOGLOBIN 11.4 GM/DL (11.6-15.3); LYMPH % 27.2 % (9.0-44.0); LYMPHOCYTE # 1.4 TH/MM3 (1.0-4.8); MEAN CELL VOLUME 94.1 FL (80.0-100.0); MEAN CORPUSCULAR HEMOGLOBIN 30.9 PG (27.0-34.0); MEAN CORPUSCULAR HGB CONC 32.8 % (32.0-36.0); MEAN PLATELET VOLUME 8.8 FL (7.0-11.0); MONO % 6.5 % (0.0-8.0); MONOCYTE # 0.3 TH/MM3 (0-0.9); NEUT % 63.7 % (16.0-70.0); PLATELET COUNT 394 TH/MM3 (150-450); RED BLOOD COUNT 3.68 MIL/MM3 (4.00-5.30); RED CELL DISTRIBUTION WIDTH 15.6 % (11.6-17.2); WHITE BLOOD COUNT 5.1 TH/MM3 (4.0-11.0)
[2017-03-03 06:26] LABS: BICARBONATE 26.8 MEQ/L (21.0-32.0); CALCIUM 8.2 MG/DL (8.5-10.1)
[2017-03-03 06:30] LABS: CREATININE 0.74 MG/DL (0.50-1.00)
[2017-03-03 08:00] VITALS: BP 151/82; PULSE 67; RESP 14; TEMP 97.2; O2SAT 93
[2017-03-03] MEDS: INSULIN ASPART SUPPLEMENTAL SCALE SQ SCH ×2 (08:00→12:00)
[2017-03-03] MEDS ORDERED: azaTHIOprine 50 MG TAB PO SCH (09:00)
[2017-03-03] MEDS ORDERED: PANTOPRAZOLE SOD 40 MG DELAYED RELEASE TAB PO SCH (09:00)
[2017-03-03] MEDS ORDERED: DULoxetine HCl DR 60 MG CAP PO SCH (09:00)
[2017-03-03] MEDS: SODIUM CHLORIDE 0.9% FLUSH 10 ML FLUSH IV FLUSH SCH (09:45)
[2017-03-03] MEDS: DICYCLOMINE HCL 10 MG CAP PO SCH ×2 (09:46→12:47)
[2017-03-03] MEDS: SUCRALFATE 1 GM TAB PO SCH ×2 (09:46→12:47)
[2017-03-03] MEDS: GABAPENTIN 300 MG CAP PO SCH ×2 (09:46→12:47)
[2017-03-03] MEDS ORDERED: AZIT250T3 PO (11:42)
[2017-03-03] MEDS ORDERED: PRED10PA PO (11:42)
[2017-03-03] MEDS ORDERED: AZITHROMYCIN 250 MG TAB PO ONE (11:45)
[2017-03-03] MEDS ORDERED: predniSONE 20 MG TAB PO ONE (11:45)
--- NOTE | 2017-03-03 11:45 | HHI.DS ---
Discharge Summary Admission Date Mar 02, 2017 at 16:25 Discharge Date: Mar 03, 2017 Admitting Diagnosis DEHYDRATION, ADVERSE MEDICATION REACTION (1) Dehydration ICD Code: E86.0 - Dehydration Status: Acute (2) Autoimmune hepatitis ICD Code: K75.4 - Autoimmune hepatitis Status: Chronic (3) COPD (chronic obstructive pulmonary disease) ICD Code: J44.9 - Chronic obstructive pulmonary disease, unspecified Status: Acute Procedures none Brief History - From Admission This patient is a 66-year-old female with a history of hypertension and diabetes. She also has Graves' disease and is status post radiation for thyroid. She says she had one day of lightheadedness and checked her blood pressure at home. Blood pressure was 80/40. She normally takes blood pressure medications including lisinopril. He and periodically takes propanolol for headache. She did take the medicine this morning because she woke up with a headache. Last night she had some diarrhea. She notes no other difficulties. She's not had fever or chills. And the patient has come to the emergency room for further evaluation due to persistent dizziness. Her blood pressure was quite low with 100/48. Patient was very dizzy. Labs are otherwise unremarkable. She has no pain complaint at this time. She is recommended for observation due to low blood pressure with dizziness CBC/BMP: 03/03/17 0540 03/03/17 0540 Significant Findings Laboratory Tests Test 03/02/17 14:41 03/02/17 16:45 03/03/17 05:40 Red Blood Count 3.53 MIL/MM3 (4.00-5.30) 3.68 MIL/MM3 (4.00-5.30) Hemoglobin 11.0 GM/DL (11.6-15.3) 11.4 GM/DL (11.6-15.3) Hematocrit 33.5 % (35.0-46.0) 34.7 % (35.0-46.0) Basophils (%) (Auto) 2.3 % (0.0-2.0) Blood Urea Nitrogen 19 MG/DL (7-18) Random Glucose 66 MG/DL (74-106) Total Protein 6.3 GM/DL (6.4-8.2) Albumin 3.0 GM/DL (3.4-5.0) Calcium Level 8.1 MG/DL (8.5-10.1) 8.2 MG/DL (8.5-10.1) Aspartate Amino Transf (AST/SGOT) 14 U/L (15-37) Estimat Glomerular Filtration Rate 66 ML/MIN (>89) 79 ML/MIN (>89) Troponin I LESS THAN 0.02 NG/ML Chloride Level 110 MEQ/L (98-107) Imaging Last Impressions Chest X-Ray 03/02/17 1410 Signed Impressions: Service Date/Time: Thursday, March 02, 2017 14:45 - CONCLUSION: Mild diffuse interstitial prominence the lungs likely related to smoking. Pedro Crawford MD PE at Discharge GENERAL: This is a well-nourished, well-developed patient, in no apparent distress. CARDIOVASCULAR: Regular rate and rhythm without murmurs, gallops, or rubs. RESPIRATORY: Clear to auscultation. Breath sounds equal bilaterally. No wheezes , rales, or rhonchi. GASTROINTESTINAL: Abdomen soft, non-tender, nondistended. Normal active bowel sounds MUSCULOSKELETAL: Extremities without clubbing, cyanosis, or edema. NEURO: Alert & Oriented x4 to person, place, time, situation. Moves all ext x4 Pt update on day of discharge Patient seen today with a little cough and little bit short of breath like COPD exacerbation which is very mild. Patient's blood pressures improved if she feels stronger however and will like to go home. I did discuss with patient treatment as outpatient with trial of antibiotics and steroid taper to follow- up with her primary care doctor and she is agreeable. Hospital Course Patient is 66-year-old female who was admitted with dehydration and hypotension likely related to the propanolol which was taking for headache. Patient's blood pressure improved and she did not feel dizzy anymore. She did however have some cough and shortness of breath similar to COPD exacerbation. She was prescribed antibiotics and some steroids which were started in the hospital and she was discharged home. Pt Condition on Discharge: Good Discharge Disposition: Discharge Home Discharge Time: <= 30 minutes Discharge Instructions DIET: Follow Instructions for: Diabetic Diet Activities you can perform: Regular-No Restrictions Follow up Referrals: PCP Follow-up - 1 Week with yariel New Medications: Azithromycin (Azithromycin) 250 Mg Tab 250 MG PO DIRECTED for Infection, #6 TAB 0 Refills Take 2 tabs (500 mg) on day 1 then 1 tab daily x 4 days. Prednisone (21) 10 mg tab Dose Pack (Prednisone (21) 10 mg tab Dose Pack) 10 Mg Pack 10 MG PO DIRECTED for Inflammation, #1 DSPK 0 Refills Continued Medications: Albuterol 18 GM Inh (Ventolin Hfa 18 GM Inh) 90 Mcg/Act Aer 2 PUFF INH BID PRN for SHORTNESS OF BREATH, #1 INHALER 0 Refills Ascorbic Acid (C 500) 500 Mg Tab 1 TAB PO BID Azathioprine (Azathioprine) 50 Mg Tab 150 MG PO DAILY for Immunosuppression, #60 TAB 0 Refills Hazardous agent use appropriate precautions for handling and disposal. Cholecalciferol (D 2000) 2,000 Unit Tab 5000 UNITS PO DAILY Dicyclomine (Dicyclomine) 10 Mg Cap 10 MG PO QID for Bowel Management, CAP [address] (Cymbalta DR) 60 Mg Capdr 60 MG PO DAILY, #30 CAP [address] (Nexium) 40 Mg Capdr 40 MG PO DAILY, CAP 0 Refills Gabapentin (Gabapentin) 600 Mg Tab 600 MG PO TID, #90 TAB 0 Refills Ipratropium-Albuterol Neb (Duoneb) 0.5-2.5 Mg/3 Ml Neb 1 NEBULE INH Q4HR NEB PRN for SHORTNESS OF BREATH, #120 NEBULE 0 Refills Levothyroxine (Synthroid) 150 Mcg Tab 150 MCG PO DAILY for Thyroid, #30 TAB 0 Refills Lisinopril (Lisinopril) 10 Mg Tab 10 MG PO HS, #30 TAB 0 Refills Multiple Vitamin (Multi-Vitamin Daily) 1 Tab Tab 1 TAB PO DAILY for Nutritional Supplement, TAB 0 Refills Ondansetron Odt (Zofran Odt) 4 Mg Tab 4 MG SL Q6HR PRN for Nausea/Vomiting, #10 TAB 0 Refills Prochlorperazine Maleate (Prochlorperazine Maleate) 10 Mg Tab 10 MG PO TID PRN for NAUSEA OR VOMITING, TAB 0 Refills Sucralfate (Sucralfate) 1 Gm Tab 1 GM PO QID for Duodenal ulcer, #120 TAB 0 Refills on empty stomach Tramadol (Tramadol) 50 Mg Tab 100 MG PO Q8HR for PAIN, TAB 0 Refills Cynthia Lawler MD Mar 03, 2017 11:45
[2017-03-03 12:00] VITALS: BP 141/81; PULSE 62; RESP 12; TEMP 96.4; O2SAT 97
--- NOTE | 2017-03-03 22:35 | EKG ---
Date Performed: 03/02/2017 Time Performed: 14:52:25 PTAGE: 66 years EKG: SINUS BRADYCARDIA NONSPECIFIC T-WAVE ABNORMALITY BORDERLINE ECG PREVIOUS TRACING : 01/03/2015 12.29 Compared to previous tracing sinus bradycardia is new DOCTOR: Usama Reyez Interpretating Date/Time 03/03/2017 22:33:31
== END 2017-03-03 13:31 | disposition home or self-care (01) ==
LOC: PHED 13:54 → INTOOBSV 16:25 → PHEDA 16:25 → PH3A 17:40
PROVIDERS: ADMIT Hospitalist; ATTEND Hospitalist
DX: E86.0 Dehydration (principal); I95.1 Orthostatic hypotension; K75.4 Autoimmune hepatitis; R19.7 Diarrhea, unspecified; R11.10 Vomiting, unspecified; I10 Essential (primary) hypertension; J44.1 Chronic obstructive pulmonary disease with (acute) exacerbation; E78.00 Pure hypercholesterolemia, unspecified; E11.9 Type 2 diabetes mellitus without complications; M79.7 Fibromyalgia; K21.9 Gastro-esophageal reflux disease without esophagitis; K44.9 Diaphragmatic hernia without obstruction or gangrene; M48.00 Spinal stenosis, site unspecified; F41.9 Anxiety disorder, unspecified; G62.9 Polyneuropathy, unspecified; G43.909 Migraine, unspecified, not intractable, without status migrainosus; R56.9 Unspecified convulsions; G47.30 Sleep apnea, unspecified; E05.00 Thyrotoxicosis with diffuse goiter without thyrotoxic crisis or storm; R06.02 Shortness of breath; Z92.3 Personal history of irradiation; Z99.81 Dependence on supplemental oxygen; Z98.1 Arthrodesis status; Z79.4 Long term (current) use of insulin; Z79.84 Long term (current) use of oral hypoglycemic drugs
CPT/HCPCS: 71045; 80048; 80053; 81001; 82948; 83690; 84484; 85025; 93005; 94664; 96360; 96361; 99285; G0378; J7030; J7500; J7512

== ENCOUNTER 2017-08-07 12:58 | Inpatient (IN) | payer OTHER, MEDICARE ==
[~2017-08-07] VITALS: Ht 152.4 cm; Wt 81.8 kg
[2017-08-07] VITALS (12 sets, daily range): BP systolic 67–142; BP diastolic 44–78; PULSE 58–81; RESP 16–20; TEMP 96.6–97.3; O2SAT 94–98
[~2017-08-07 12:58] MED LIST changes: -AMIT24CA9 PO; +AZIT250T3 PO; -BETH25 PO; -LYRI100C PO; -OMEGCAP19 PO; -PHENERGAN W CODEIN PO; +PRED10PA PO; -SPIRCAP INH; -ZITHTAB PO
[2017-08-07] MEDS ORDERED: SODIUM CHLOR 0.9% 1000 ML INJ 1,000 ML IV ONE ×2 (13:45→15:15)
--- NOTE | 2017-08-07 14:11 | RADRPT ---
EXAM DATE: 08/07/2017 2:07 PM EDT AGE/SEX: 67 years / Female INDICATIONS: Short of breath, upper back pain CLINICAL DATA: This is the patient's initial encounter. Patient reports that signs and symptoms have been present for 4 - 6 days and indicates a pain score of 8/10. MEDICAL/SURGICAL HISTORY: . Cardiovascular disease. Hypertension. Graves, neuropathy lower extr emities . Neck surgery COMPARISON: [facility], CHEST SINGLE AP, 03/02/2017. . FINDINGS: A single AP view of the chest demonstrates minimal bibasilar densities. Heart in the upper limits of normal in size. The cardiomediastinal contours are unremarkable. Osseous structures are intact. CONCLUSION: Minimal bibasilar patchy infiltrates greater left lower lobe. Electronically signed by: Mateus Yee MD 08/07/2017 2:10 PM EDT
[2017-08-07 14:28] LABS: AUTOMATED NEUTROPHIL # 2.6 TH/MM3 (1.8-7.7); BASOPHIL % 0.4 % (0.0-2.0); EOSINOPHIL # 0.2 TH/MM3 (0-0.4); EOSINOPHIL % 4.8 % (0.0-4.0); HEMATOCRIT 34.9 % (35.0-46.0); HEMOGLOBIN 11.5 GM/DL (11.6-15.3); LYMPH % 22.1 % (9.0-44.0); LYMPHOCYTE # 0.9 TH/MM3 (1.0-4.8); MEAN CELL VOLUME 94.5 FL (80.0-100.0); MEAN CORPUSCULAR HEMOGLOBIN 31.2 PG (27.0-34.0); MEAN PLATELET VOLUME 9.2 FL (7.0-11.0); MONO % 10.4 % (0.0-8.0); MONOCYTE # 0.4 TH/MM3 (0-0.9); NEUT % 62.3 % (16.0-70.0); PLATELET COUNT 176 TH/MM3 (150-450); RED BLOOD COUNT 3.69 MIL/MM3 (4.00-5.30); RED CELL DISTRIBUTION WIDTH 14.4 % (11.6-17.2); WHITE BLOOD COUNT 4.1 TH/MM3 (4.0-11.0)
[2017-08-07 14:34] LABS: CHLORIDE 113 MEQ/L (98-107); SODIUM (NA) 145 MEQ/L (136-145)
[2017-08-07 14:37] LABS: BILIRUBIN, URINE NEG (NEG); BLOOD, URINE NEG (NEG); GLUCOSE,URINE NEG (NEG); KETONE, URINE NEG (NEG); NITRITE,URINE NEG (NEG); URINE LEUKOCYTE ESTERASE NEG (NEG)
[2017-08-07 14:38] LABS: BICARBONATE 24.5 MEQ/L (21.0-32.0); BLOOD UREA NITROGEN 26 MG/DL (7-18); CALCIUM 7.8 MG/DL (8.5-10.1); GLUCOSE,RANDOM 72 MG/DL (74-106)
[2017-08-07 14:40] LABS: URINE COLOR YELLOW (YELLW/STRAW)
[2017-08-07 14:41] LABS: ALT (GPT) 66 U/L (10-53); AST (GOT) 23 U/L (15-37); GLOMERULAR FILTRATION RATE 55 ML/MIN (>89)
--- NOTE | 2017-08-07 14:41 | RADRPT ---
EXAM DATE: 08/07/2017 2:38 PM EDT AGE/SEX: 67 years / Female INDICATIONS: Dizziness and headache. CLINICAL DATA: This is the patient's initial encounter. Patient reports that signs and symptoms have been present for 4 - 6 days and indicates a pain score of 4/10. MEDICAL/SURGICAL HISTORY: . Cardiovascular disease. Hypertension. Graves disease. Neuropathy lower extremities. . Craniotomy. Cholecystectomy.Cervical fusion. RADIATION DOSE: 50.26 CTDI (mGy) COMPARISON: No prior exams available for comparison. TECHNIQUE: CT of the head without contrast. Using automated exposure control and adjustment of the mA and/or kV according to patient size, radiation dose was kept as low as reasonably achievable to ob tain optimal diagnostic quality images. DICOM format image data is available electronically for revi ew and comparison. FINDINGS: Cerebrum: Encephalomalacia in both frontal lobes. The ventricles are normal for age. No evidence of midline shift, mass lesion, hemorrhage or acute infarction. No extraaxial fluid collections are see n. Posterior Fossa: The cerebellum and brainstem are intact. The 4th ventricle is midline. The cerebe llopontine angle is unremarkable. Extracranial: The visualized portion of the orbits is intact. Skull: Bifrontal craniotomies. No evidence of skull fracture. CONCLUSION: 1. Bifrontal encephalomalacia. 2. Status post craniotomies. 3. No acute intracranial abnormality. Electronically signed by: Mateus Yee MD 08/07/2017 2:40 PM EDT
[2017-08-07 14:43] LABS: AMORPHOUS SEDIMENT, URINE FEW; SQUAMOUS EPITHELIAL CELL URINE 0-5 /hpf (0-5); TRANSITIONAL EPI CELLS, URINE 0-5 /hpf
[2017-08-07 14:43] LABS: PROTHROMBIN TIME - PATIENT 10.1 SEC (9.8-11.6); TOTAL BILIRUBIN ADULT 0.3 MG/DL (0.2-1.0); TOTAL PROTEIN 5.8 GM/DL (6.4-8.2)
[2017-08-07 14:44] LABS: ALKALINE PHOSPHATASE 47 U/L (45-117)
[2017-08-07 14:47] LABS: TROPONIN I LESS THAN 0.02 NG/ML (0.02-0.05)
[2017-08-07 14:53] LABS: D-DIMER 1.44 MG/L FEU (0.00-0.50)
--- NOTE | 2017-08-07 14:54 | PD ---
HPI Chief Complaint: Dizziness Time Seen by Provider: 13:24 Travel History International Travel<30 days: No Contact w/Intl Traveler<30days: No Traveled to known affect area: No History of Present Illness HPI Patient presents to the emergency department complaining of low blood pressure for the past 2 days. States that her systolic pressures has been in the 60s; therefore, she has stopped taking her antihypertensives. Plan of shortness of breath 2 days as well numbness in her face. Dyspnea at rest on exertion. She has a history of COPD she states that this feels different. As the weakness, positive dizziness, positive headache, positive numbness and tingling throughout her body on yesterday (she has fibromyalgia). Also reporting crampy abdominal pain, nausea, and chest pain. Denies diarrhea vomiting. Pain is described as being tightness, sternal, 4 out of 10, intermittent, 2 minutes in duration, no alleviating or aggravating factors.+ mid lower back pain PFSH Past Medical History Arthritis: Yes Asthma: No Autoimmune Disease: Yes (GRAVES, HEP B) Anxiety: Yes Depression: Yes Heart Rhythm Problems: No Cancer: Yes (CERVICAL x 2, 1984 and 1994) Cardiac Catheterization: Yes (OCT 2005) Cardiovascular Problems: Yes (htn on meds, did not take for 2 days) High Cholesterol: Yes Chemotherapy: No Chest Pain: Yes (none since cardiac cath) Congestive Heart Failure: No COPD: Yes Cerebrovascular Accident: No Diabetes: Yes (type 2 diet control only) Diminished Hearing: No Endocrine: Yes Fibromyalgia: Yes Gastrointestinal Disorders: Yes GERD: Yes Genitourinary: Yes Headaches: Yes (DAILY) Hepatitis: Yes (AUTOIMMUNE HEP B) Hiatal Hernia: Yes Hypertension: Yes Immune Disorder: Yes Kidney Stones: No Musculoskeletal: Yes (CHRONIC BACK & NECK PAIN) Neurologic: Yes (BILATERAL LL NEUROPATHY) Psychiatric: Yes Reproductive: No Respiratory: Yes (copd) Immunizations Current: Yes Migraines: Yes Pneumonia: Yes Radiation Therapy: No Renal Failure: No Seizures: Yes Sickle Cell Disease: No Sleep Apnea: Yes (home cpap machine) Thyroid Disease: Yes (GRAVES DISEASE) Ulcer: No Menopausal: Yes : 3 Para: 3 Tubal Ligation: Yes (1973) Past Surgical History Abdominal Surgery: Yes (CHOLECYSTECTOMY) Arteriovenous Shunt: No Body Medical Devices: plates and screws in head Cardiac Surgery: Yes (cardiac cath- no stents 2007) Cholecystectomy: Yes Ear Surgery: No Endocrine Surgery: No Eye Surgery: Yes (BILAT EYE SX TO RAISE LOWER LIDS) Genitourinary Surgery: No Gynecologic Surgery: Yes (RIGHT OVARY REMOVED) Insulin Pump: No Joint Replacement: Yes (L elbow 2013) Neurologic Surgery: Yes (CRANIOTOMY 1995, NERVE STIMULATOR 2005 removed 2013, 3 LEVEL CERVICAL FUSIO) Oral Surgery: No Pacemaker: No Thoracic Surgery: Yes (LEFT LUMPECTOMY 2000, BREAST NEEDLE ASPIRATION, BREAST ERDUCTION) Other Surgery: Yes (SINUS SURGERY WITH CRANIOTOMY, NEURO STIMULATOR IMPLANTAION /REMOVAL) Family History Family Hypercholesterolemia: Yes (SISTER) Social History Alcohol Use: No Tobacco Use: No (QUIT 1995) Substance Use: No Allergies-Medications (Allergen,Severity, Reaction): Coded Allergies: bee venom protein (honey bee) (Unverified Allergy, Severe, DIFFICULTY BREATHING, 08/07/17) . divalproex sodium (Unverified Allergy, Severe, 08/07/17) REACTION NOT GIVEN house dust (Unverified Allergy, Severe, 08/07/17) loratadine (Unverified Allergy, Severe, 08/07/17) REACTION NIT GIVEN meperidine (Unverified Allergy, Severe, 08/07/17) REACTION NOT GIVEN oxcarbazepine (Unverified Allergy, Severe, 08/07/17) REACTION NOT GIVEN phenytoin (Unverified Allergy, Severe, 08/07/17) REACTION NOT GIVEN sumatriptan (Unverified Allergy, Intermediate, SOB, CHEST TIGHTNESS, ) topiramate (Unverified Allergy, Intermediate, Hives, 08/07/17) celecoxib (Unverified Allergy, Mild, PALPITATIONS, 08/07/17) amitriptyline (Unverified Allergy, Unknown, 08/07/17) chlordiazepoxide (Unverified Allergy, Unknown, 08/07/17) lamotrigine (Unverified Allergy, Unknown, 08/07/17) REACTION NOT GIVEN sertraline (Unverified Adverse Reaction, Intermediate, "SPACED OUT", ) acetaminophen (Unverified Adverse Reaction, Mild, CONSTIPATION, 08/07/17) levetiracetam (Unverified Adverse Reaction, Mild, "SPACED OUT", 08/07/17) oxycodone (Unverified Adverse Reaction, Mild, CONSTIPATION, 08/07/17) Uncoded Allergies: NSAIDS (Allergy, Severe, 08/07/17) . . . .. combivent (Allergy, Severe, severe nausea and vomiting, 08/07/17) .. ARTHROTEC (Allergy, Mild, 08/07/17) ... Reported Meds & Prescriptions Reported Meds & Active Scripts Active Reported Buspirone (Buspirone HCl) 10 Mg Tab 10 Mg PO BID Promethazine (Promethazine HCl) 12.5 Mg Tab 12.5 Mg PO Q4H PRN Prochlorperazine Maleate 10 Mg Tab 10 Mg PO TID PRN Propranolol (Propranolol HCl) 20 Mg Tab 20 Mg PO BID Diclofenac Sodium DR (Diclofenac Sodium) 75 Mg Tabdr 75 Mg PO BID Systane Opth Drops (Polyethylene Glycol-Propylene Glycol Opth Drp) 0.4-0.3% Soln 1-2 Drop EACH EYE PRN PRN Dicyclomine (Dicyclomine HCl) 10 Mg Cap 10 Mg PO TID PRN Allergy Relief (Loratadine) 10 Mg Tab 10 Mg PO DAILY Calcium 600 with Vitamin D (Calcium Carbonate-Cholecalciferol) 600-400 mg-Unit Tab 1 Tab PO DAILY Tramadol (Tramadol HCl) 50 Mg Tab 100 Mg PO Q6H PRN Tizanidine (Tizanidine HCl) 4 Mg Cap 4 Mg PO TID Symbicort Inh (Budesonide/Formoterol Fumarate) 160-4.5 Mcg/Act Aero 2 Puff INH Q12HR Levothyroxine (Levothyroxine Sodium) 137 Mcg Tab 137 Mcg PO DAILY Multi-Vitamin Daily (Multiple Vitamin) 1 Tab Tab 1 Tab PO DAILY Cymbalta DR (Duloxetine HCl) 60 Mg Capdr 60 Mg PO DAILY Gabapentin 600 Mg Tab 600 Mg PO TID Lisinopril 10 Mg Tab 10 Mg PO HS Sucralfate 1 Gm Tab 1 Gm PO QID on empty stomach Nexium (Esomeprazole DR) 40 Mg Capdr 40 Mg PO DAILY D 2000 (Cholecalciferol) 2,000 Unit Tab 5,000 Units PO DAILY Azathioprine 50 Mg Tab 150 Mg PO DAILY Hazardous agent use appropriate precautions for handling and disposal. C 500 (Ascorbic Acid) 500 Mg Tab 1 Tab PO BID Duoneb (Ipratropium-Albuterol Neb) 0.5-2.5 Mg/3 Ml Neb 1 Nebule INH Q4HR NEB PRN Ventolin Hfa 18 GM Inh (Albuterol Sulfate) 90 Mcg/Act Aer 2 Puff INH BID PRN Review of Systems Except as stated in HPI: all other systems reviewed are Neg Physical Exam Narrative GENERAL: No acute distress. SKIN: Focused skin assessment warm/dry. HEAD: Atraumatic. Normocephalic. EYES: Pupils equal and round. No scleral icterus. No injection or drainage. ENT: No nasal bleeding or discharge. Mucous membranes pink and moist. NECK: Trachea midline. No JVD. CARDIOVASCULAR: Regular rate and rhythm. No murmur appreciated. RESPIRATORY: No accessory muscle use. Clear to auscultation. Breath sounds equal bilaterally. GASTROINTESTINAL: Abdomen soft, non-tender, nondistended. Hepatic and splenic margins not palpable. Rectal: Brown stool, Hemoccult neg MUSCULOSKELETAL: No obvious deformities. No clubbing. No cyanosis. No edema. NEUROLOGICAL: Awake and alert. No obvious cranial nerve deficits. Motor grossly within normal limits. Normal speech. PSYCHIATRIC: Appropriate mood and affect; insight and judgment normal. Data Data Last Documented VS Vital Signs Date Time Temp Pulse Resp B/P (MAP) Pulse Ox O2 Delivery O2 Flow Rate FiO2 08/07/17 17:31 66 16 123/58 (79) 96 Nasal Cannula 2.00 08/07/17 13:07 97.3 Orders Orders Electrocardiogram (08/07/17 13:38) Complete Blood Count With Diff (08/07/17 13:38) Comprehensive Metabolic Panel (08/07/17 13:38) Creatine Kinase (Cpk) (08/07/17 13:38) Ckmb (Isoenzyme) Profile (08/07/17 13:38) Troponin I (08/07/17 13:38) B-Type Natriuretic Peptide (08/07/17 13:38) Prothrombin Time / Inr (Pt) (08/07/17 13:38) Act Partial Throm Time (Ptt) (08/07/17 13:38) Urinalysis - C+S If Indicated (08/07/17 13:38) Cath For Specimen (08/07/17 13:38) D-Dimer (08/07/17 13:38) Magnesium (Mg) (08/07/17 13:38) Thyroid Stimulating Hormone (08/07/17 13:38) Chest, Single Ap (08/07/17 13:38) Ct Brain W/O Iv Contrast(Rout) (08/07/17 13:38) Iv Access Insert/Monitor (08/07/17 13:38) Ecg Monitoring (08/07/17 13:38) Free T3 (08/07/17 13:38) Free Thyroxine (T4) (08/07/17 13:38) Lactic Acid Sepsis Protocol (08/07/17 13:38) Blood Culture (08/07/17 13:38) Sodium Chlor 0.9% 1000 Ml Inj (Ns 1000 M (08/07/17 13:45) Cortisol (08/07/17 14:15) Ct Pulmonary Angiogram (08/07/17 15:03) Sodium Chlor 0.9% 1000 Ml Inj (Ns 1000 M (08/07/17 15:15) Iohexol 350 Inj (Omnipaque 350 Inj) (08/07/17 16:48) Ceftriaxone Inj (Rocephin Inj) (08/07/17 17:45) Azithromycin (Zithromax) (08/07/17 17:45) Admit Order (Ed Use Only) (08/07/17 17:39) Labs Laboratory Tests Test 08/07/17 14:22 08/07/17 14:25 White Blood Count 4.1 TH/MM3 Red Blood Count 3.69 MIL/MM3 Hemoglobin 11.5 GM/DL Hematocrit 34.9 % Mean Corpuscular Volume 94.5 FL Mean Corpuscular Hemoglobin 31.2 PG Mean Corpuscular Hemoglobin Concent 33.0 % Red Cell Distribution Width 14.4 % Platelet Count 176 TH/MM3 Mean Platelet Volume 9.2 FL Neutrophils (%) (Auto) 62.3 % Lymphocytes (%) (Auto) 22.1 % Monocytes (%) (Auto) 10.4 % Eosinophils (%) (Auto) 4.8 % Basophils (%) (Auto) 0.4 % Neutrophils # (Auto) 2.6 TH/MM3 Lymphocytes # (Auto) 0.9 TH/MM3 Monocytes # (Auto) 0.4 TH/MM3 Eosinophils # (Auto) 0.2 TH/MM3 Basophils # (Auto) 0.0 TH/MM3 CBC Comment DIFF FINAL Differential Comment Prothrombin Time 10.1 SEC Prothromb Time International Ratio 1.0 RATIO Activated Partial Thromboplast Time 25.8 SEC D-Dimer Quantitative (PE/DVT) 1.44 MG/L FEU Blood Urea Nitrogen 26 MG/DL Creatinine 1.00 MG/DL Random Glucose 72 MG/DL Total Protein 5.8 GM/DL Albumin 3.0 GM/DL Calcium Level 7.8 MG/DL Magnesium Level 2.0 MG/DL Alkaline Phosphatase 47 U/L Aspartate Amino Transf (AST/SGOT) 23 U/L Alanine Aminotransferase (ALT/SGPT) 66 U/L Total Bilirubin 0.3 MG/DL Sodium Level 145 MEQ/L Potassium Level 4.3 MEQ/L Chloride Level 113 MEQ/L Carbon Dioxide Level 24.5 MEQ/L Anion Gap 8 MEQ/L Estimat Glomerular Filtration Rate 55 ML/MIN Lactic Acid Level 1.1 mmol/L Total Creatine Kinase 54 U/L Troponin I LESS THAN 0.02 NG/ML B-Type Natriuretic Peptide 14 PG/ML Free Thyroxine 1.23 NG/DL Free Triiodothyronine (T3) pg/dL 2.01 PG/ML Thyroid Stimulating Hormone 3rd Gen 0.939 uIU/ML Random Cortisol 6.3 MCG/DL Urine Collection Type CATH Urine Color YELLOW Urine Turbidity SLIGHT Urine pH 7.0 Urine Specific [place] 1.010 Urine Protein NEG mg/dL Urine Glucose (UA) NEG mg/dL Urine Ketones NEG mg/dL Urine Occult Blood NEG Urine Nitrite NEG Urine Bilirubin NEG Urine Urobilinogen 1.0 MG/DL Urine Leukocyte Esterase NEG Urine Squamous Epithelial Cells 0-5 /hpf Urine Transitional Epithelial Cells 0-5 /hpf Urine Amorphous Sediment FEW Microscopic Urinalysis Comment CATH-CULT NOT IND Urine Collection Time 1425 MDM Medical Decision Making Medical Screen Exam Complete: Yes Emergency Medical Condition: Yes Interpretation(s) Bedside fast negative ECG: Sinus bradycardia 54, Q-wave in lead III and aVF, V1 T-wave inversion Labs: Decreased hemoglobin and hematocrit, elevated BUN/ALT, decrease glucose; ua-neg, normal lactate; elevated d-dimer; free T3 low Last Impressions CT Angiography 08/07/17 1503 Signed Impressions: CONCLUSION: 1. Negative for pulmonary embolism. Scattered groundglass opacity in both lung s most characteristic of a bronchopneumonia. No effusions. Head CT 08/07/17 1338 Signed Impressions: CONCLUSION: 1. Bifrontal encephalomalacia. 2. Status post craniotomies. 3. No acute intracranial abnormality. Chest X-Ray 08/07/17 1338 Signed Impressions: CONCLUSION: Minimal bibasilar patchy infiltrates greater left lower lobe. Differential Diagnosis UTI, ACS, sepsis, pneumonia, CHF, COPD, GI bleed, anemia, dehydration Narrative Course Patient presents to the emergency department with shortness of breath, hypotension, chest pain, dyspnea. Patient placed on school superintendent, IV access obtained, will need IV normal saline given. Chest x-ray/EKG/labs/head CT/ abdominal CT/normal saline ordered. 1308: BP 109/62. 2nd liter ordered. CTA chest pending. 1709: BP 119/65. Patient ordered 1gram IV rocephin and 500mg po zithromax. 1736: HR 64, 123/58. Admitted to Dr. Calderón, hospitalist. Diagnosis Primary Impression: Pneumonia Qualified Codes: J18.1 - Lobar pneumonia, unspecified organism Additional Impression: Hypotension Qualified Codes: I95.9 - Hypotension, unspecified Admitting Information Admitting Physician Requests: Admit Condition: Stable Alexus Emmanuel MD Aug 07, 2017 14:54
[2017-08-07] MEDS ORDERED: DICL75TA PO (15:50)
[2017-08-07] MEDS ORDERED: SYSTSOL EACH EYE (15:50)
[2017-08-07] MEDS ORDERED: LORA-650 PO (15:50)
[2017-08-07] MEDS ORDERED: PROP20TA3 PO (15:50)
[2017-08-07] MEDS ORDERED: PROC10TA PO (15:50)
[2017-08-07] MEDS ORDERED: DICY10CA12 PO (15:50)
[2017-08-07] MEDS ORDERED: CALC1TAB87 PO (15:50)
[2017-08-07] MEDS ORDERED: BUSP10TA PO (15:50)
[2017-08-07] MEDS ORDERED: PROM12.54 PO (15:50)
[2017-08-07] MEDS ORDERED: TIZA4CAP3 PO (15:50)
[2017-08-07] MEDS ORDERED: SYMB160A INH (15:50)
[2017-08-07] MEDS ORDERED: LEVO137T2 PO (15:50)
[2017-08-07] MEDS ORDERED: TRAM50TA PO (15:50)
[2017-08-07 16:43] LABS: FREE T3 2.01 PG/ML (2.18-3.98); FREE T4 1.23 NG/DL (0.76-1.46)
[2017-08-07] MEDS ORDERED: IOHEXOL 350 MG/ML 10 ML VIAL (for RAD DIAG) IVCONTRAST ONE (16:48)
--- NOTE | 2017-08-07 17:11 | RADRPT ---
EXAM DATE: 08/07/2017 4:52 PM EDT AGE/SEX: 67 years / Female INDICATIONS: Breathing difficulty. CLINICAL DATA: This is the patient's initial encounter. Patient reports that signs and symptoms have been present for 1 day and indicates a pain score of 0/10. MEDICAL/SURGICAL HISTORY: . Cardiovascular disease. Hypertension. Graves disease. Neuropathy lower extremities. . . Craniotomy. Cholecystectomy. Cervical fusion. RADIATION DOSE: 17.74 CTDI (mGy) COMPARISON: [facility], CT PULMONARY ANGIOGRAM, 01/03/2015. . TECHNIQUE: Volumetric scanning was performed using a multi-row detector CT scanner during bolus infu [place] of 65 ml Omnipaque 350 (iohexol) nonionic water-soluble contrast as a single exam dose. The claus a was post processed with a variety of visualization algorithms including full volume maximum intensi ty projection and sliding thin slab reformation. Using automated exposure control and adjustment of the mA and/or kV according to patient size, radiation dose was kept as low as reasonably achievable t o obtain optimal diagnostic quality images. DICOM format image data is available electronically for review and comparison. FINDINGS: No filling defects identified to suggest pulmonary embolic disease. There is patchy groundglass opaci ty in both lungs, probably a mild bronchopneumonia. Borderline enlarged mediastinal and hilar lymph n odes. No pleural or pericardial effusion. No acute findings in the upper abdomen. Previous cholecystectomy. Small hiatal hernia. CONCLUSION: 1. Negative for pulmonary embolism. Scattered groundglass opacity in both lungs most characteristic of a bronchopneumonia. No effusions. Electronically signed by: Yannick Davison MD 08/07/2017 5:10 PM EDT
[2017-08-07] MEDS ORDERED: MAGNESIUM HYDROXIDE SUSP 30 ML CUP PO PRN (17:45)
[2017-08-07] MEDS ORDERED: NALOXONE HCL 0.4 MG/ML AMP IV PUSH PRN (17:45)
[2017-08-07] MEDS ORDERED: cefTRIAXone INJ 1,000 MG in SODIUM CHLORIDE 0.9% INJ 100 ML IV ONE (17:45)
[2017-08-07] MEDS ORDERED: LACTULOSE SYRUP 20 GM/30 ML CUP PO PRN (17:45)
[2017-08-07] MEDS ORDERED: SODIUM CHLORIDE 0.9% FLUSH 10 ML FLUSH IV FLUSH PRN (17:45)
[2017-08-07] MEDS ORDERED: SENNOSIDES 8.6 MG TAB PO PRN (17:45)
[2017-08-07] MEDS ORDERED: BISACODYL 10 MG SUPP RECTAL PRN (17:45)
[2017-08-07] MEDS: AZITHROMYCIN 250 MG TAB PO SCH (17:48)
[2017-08-07] MEDS ORDERED: GABAPENTIN 300 MG CAP PO SCH (18:00)
[2017-08-07] MEDS: ENOXAPARIN SODIUM 40 MG/0.4 ML SYRINGE SQ SCH (18:19)
[2017-08-07] MEDS: SUCRALFATE 1 GM TAB PO SCH ×2 (18:19→20:49)
[2017-08-07] MEDS: SODIUM CHLOR 0.9% 1000 ML INJ 1,000 ML IV SCH (18:20)
[2017-08-07] MEDS: ACETAMINOPHEN 325 MG TAB PO PRN (18:34)
[2017-08-07] MEDS: SODIUM CHLORIDE 0.9% FLUSH 10 ML FLUSH IV FLUSH SCH (20:46)
[2017-08-07] MEDS: busPIRone HCL 10 MG TAB PO SCH (20:50)
[2017-08-07] MEDS: BUDESONIDE-FORMOTEROL 160/4.5 MCG INHALER INH SCH (20:50)
[2017-08-08] VITALS (7 sets, daily range): BP systolic 134–180; BP diastolic 64–83; PULSE 68–88; RESP 18–20; TEMP 97.1–98; O2SAT 93–96
[2017-08-08] MEDS: SODIUM CHLOR 0.9% 1000 ML INJ 1,000 ML IV SCH (03:58)
[2017-08-08] MEDS: LEVOTHYROXINE SODIUM 25 MCG TAB PO SCH (05:42)
[2017-08-08] MEDS: ACETAMINOPHEN 325 MG TAB PO PRN ×3 (05:42→21:49)
[2017-08-08] MEDS: LEVOTHYROXINE SODIUM 112 MCG TAB PO SCH (05:42)
[2017-08-08 06:22] LABS: BASOPHIL % 0.5 % (0.0-2.0); EOSINOPHIL # 0.2 TH/MM3 (0-0.4); EOSINOPHIL % 4.5 % (0.0-4.0); LYMPH % 23.2 % (9.0-44.0); LYMPHOCYTE # 1.1 TH/MM3 (1.0-4.8); MEAN CELL VOLUME 94.6 FL (80.0-100.0); MEAN CORPUSCULAR HEMOGLOBIN 32.3 PG (27.0-34.0); MEAN CORPUSCULAR HGB CONC 34.2 % (32.0-36.0); MEAN PLATELET VOLUME 10.4 FL (7.0-11.0); MONO % 7.6 % (0.0-8.0); MONOCYTE # 0.4 TH/MM3 (0-0.9); NEUT % 64.2 % (16.0-70.0); PLATELET COUNT 191 TH/MM3 (150-450); RED BLOOD COUNT 4.02 MIL/MM3 (4.00-5.30); RED CELL DISTRIBUTION WIDTH 14.2 % (11.6-17.2); WHITE BLOOD COUNT 4.7 TH/MM3 (4.0-11.0)
[2017-08-08 06:49] LABS: BICARBONATE 23.9 MEQ/L (21.0-32.0); CALCIUM 8.8 MG/DL (8.5-10.1); CREATININE 0.73 MG/DL (0.50-1.00)
[2017-08-08] MEDS: BUDESONIDE-FORMOTEROL 160/4.5 MCG INHALER INH SCH ×2 (08:36→21:53)
[2017-08-08] MEDS: PANTOPRAZOLE SOD 40 MG DELAYED RELEASE TAB PO SCH (08:36)
[2017-08-08] MEDS: DULoxetine HCl DR 60 MG CAP PO SCH (08:37)
[2017-08-08] MEDS: busPIRone HCL 10 MG TAB PO SCH ×2 (08:38→21:51)
[2017-08-08] MEDS: AZITHROMYCIN 250 MG TAB PO SCH (08:38)
[2017-08-08] MEDS: azaTHIOprine 50 MG TAB PO SCH (08:38)
[2017-08-08] MEDS: SUCRALFATE 1 GM TAB PO SCH ×4 (08:39→21:51)
[2017-08-08] MEDS: SODIUM CHLORIDE 0.9% FLUSH 10 ML FLUSH IV FLUSH SCH ×2 (08:39→21:53)
[2017-08-08] MEDS ORDERED: GABAPENTIN 300 MG CAP PO SCH (09:00)
[2017-08-08] MEDS ORDERED: cefTRIAXone INJ 2,000 MG in SODIUM CHLORIDE 0.9% INJ 100 ML IV SCH (09:00)
[2017-08-08] MEDS ORDERED: AZITHROMYCIN 250 MG TAB PO SCH (09:00)
--- NOTE | 2017-08-08 10:53 | HHI.HP ---
[facility] Benjamin Collins M.D. Admission Diagnosis pneumonia, hypotension Diagnoses: Chief Complaint: Low blood pressure Travel History International Travel<30 Days: No Contact w/Intl Traveler <30 Da: No Traveled to Known Affected Are: No History of Present Illness Ms. Kulkarni is a pleasant 67-year-old female with a history of Graves' disease , cervical cancer, diabetes mellitus who presents to the emergency department on 08/07/2017 due to low blood pressure that started 2 days prior to this admission. Patient stopped taking her hypertensive medications after she noticed her blood pressure in the 60s systolic. She also reports shortness of breath for 2 days as well as numbness in her face. Additionally she also reports weakness, dizziness, headache, numbness and tingling throughout her body. On arrival BP was 67/48. ED work up indicates ground glass opacity of the lungs consistent with bronchopneumonia. Patient was started on Ceftriaxone and Azithromycin. Review of Systems Except as stated in HPI: all other systems reviewed are Neg Past Family Social History Past Medical History Cervical cancer Hypertension Hyperlipidemia Diabetes mellitus Autoimmune hepatitis Anxiety/depression Chronic neck and back pain Graves' disease Past Surgical History Cholecystectomy Bilateral eye surgery Right ovary removal Craniotomy 1996 Elbow surgery Left-sided lumpectomy Reported Medications Buspirone (Buspirone HCl) 10 Mg Tab 10 Mg PO BID Promethazine (Promethazine HCl) 12.5 Mg Tab 12.5 Mg PO Q4H PRN Prochlorperazine Maleate 10 Mg Tab 10 Mg PO TID PRN Propranolol (Propranolol HCl) 20 Mg Tab 20 Mg PO BID Diclofenac Sodium DR (Diclofenac Sodium) 75 Mg Tabdr 75 Mg PO BID Systane Opth Drops (Polyethylene Glycol-Propylene Glycol Opth Drp) 0.4-0.3% Soln 1-2 Drop EACH EYE PRN PRN Dicyclomine (Dicyclomine HCl) 10 Mg Cap 10 Mg PO TID PRN Allergy Relief (Loratadine) 10 Mg Tab 10 Mg PO DAILY Calcium 600 with Vitamin D (Calcium Carbonate-Cholecalciferol) 600-400 mg-Unit Tab 1 Tab PO DAILY Tramadol (Tramadol HCl) 50 Mg Tab 100 Mg PO Q6H PRN Tizanidine (Tizanidine HCl) 4 Mg Cap 4 Mg PO TID Symbicort Inh (Budesonide/Formoterol Fumarate) 160-4.5 Mcg/Act Aero 2 Puff INH Q12HR Levothyroxine (Levothyroxine Sodium) 137 Mcg Tab 137 Mcg PO DAILY Multi-Vitamin Daily (Multiple Vitamin) 1 Tab Tab 1 Tab PO DAILY Cymbalta DR (Duloxetine HCl) 60 Mg Capdr 60 Mg PO DAILY Gabapentin 600 Mg Tab 600 Mg PO TID Lisinopril 10 Mg Tab 10 Mg PO HS Sucralfate 1 Gm Tab 1 Gm PO QID on empty stomach Nexium (Esomeprazole DR) 40 Mg Capdr 40 Mg PO DAILY D 2000 (Cholecalciferol) 2,000 Unit Tab 5,000 Units PO DAILY Azathioprine 50 Mg Tab 150 Mg PO DAILY Hazardous agent use appropriate precautions for handling and disposal. C 500 (Ascorbic Acid) 500 Mg Tab 1 Tab PO BID Duoneb (Ipratropium-Albuterol Neb) 0.5-2.5 Mg/3 Ml Neb 1 Nebule INH Q4HR NEB PRN Ventolin Hfa 18 GM Inh (Albuterol Sulfate) 90 Mcg/Act Aer 2 Puff INH BID PRN Allergies: Coded Allergies: bee venom protein (honey bee) (Unverified Allergy, Severe, DIFFICULTY BREATHING, 08/07/17) . divalproex sodium (Unverified Allergy, Severe, 08/07/17) REACTION NOT GIVEN house dust (Unverified Allergy, Severe, 08/07/17) loratadine (Unverified Allergy, Severe, 08/07/17) REACTION NIT GIVEN meperidine (Unverified Allergy, Severe, 08/07/17) REACTION NOT GIVEN oxcarbazepine (Unverified Allergy, Severe, 08/07/17) REACTION NOT GIVEN phenytoin (Unverified Allergy, Severe, 08/07/17) REACTION NOT GIVEN sumatriptan (Unverified Allergy, Intermediate, SOB, CHEST TIGHTNESS, ) topiramate (Unverified Allergy, Intermediate, Hives, 08/07/17) celecoxib (Unverified Allergy, Mild, PALPITATIONS, 08/07/17) amitriptyline (Unverified Allergy, Unknown, 08/07/17) chlordiazepoxide (Unverified Allergy, Unknown, 08/07/17) lamotrigine (Unverified Allergy, Unknown, 08/07/17) REACTION NOT GIVEN sertraline (Unverified Adverse Reaction, Intermediate, "SPACED OUT", ) acetaminophen (Unverified Adverse Reaction, Mild, CONSTIPATION, 08/07/17) levetiracetam (Unverified Adverse Reaction, Mild, "SPACED OUT", 08/07/17) oxycodone (Unverified Adverse Reaction, Mild, CONSTIPATION, 08/07/17) Uncoded Allergies: NSAIDS (Allergy, Severe, 08/07/17) . . . .. combivent (Allergy, Severe, severe nausea and vomiting, 08/07/17) .. ARTHROTEC (Allergy, Mild, 08/07/17) ... Family History Family history significant for hypercholesterolemia and sister. Social History patient denies using alcohol, tobacco or illicit drugs. She quit smoking in 1995. Physical Exam Vital Signs Vital Signs Date Time Temp Pulse Resp B/P (MAP) Pulse Ox O2 Delivery O2 Flow Rate FiO2 08/08/17 08:00 97.8 88 18 140/79 (99) 94 08/08/17 06:50 18 08/08/17 00:00 97.1 68 18 134/64 (87) 93 08/07/17 20:39 98 Nasal Cannula 2.00 08/07/17 20:00 96.6 68 20 142/60 (87) 94 08/07/17 19:53 69 18 135/66 (89) 96 08/07/17 19:05 81 18 115/78 (90) 97 08/07/17 18:27 61 18 136/65 (88) 98 Nasal Cannula 2.00 08/07/17 17:31 66 16 123/58 (79) 96 Nasal Cannula 2.00 08/07/17 17:01 78 20 119/65 (83) 98 Nasal Cannula 2.00 08/07/17 16:00 96 Nasal Cannula 2.00 08/07/17 15:07 58 16 109/62 (78) 95 Nasal Cannula 2.00 08/07/17 14:00 62 18 90/44 (59) 98 Nasal Cannula 2.00 08/07/17 13:26 58 18 93/49 (64) 98 Nasal Cannula 2.00 08/07/17 13:26 58 18 98 Nasal Cannula 2.00 08/07/17 13:07 97.3 69 16 67/48 (54) 98 Physical Exam GENERAL: This is a well-nourished, well-developed patient, in no apparent distress. SKIN: No rashes, ecchymoses or lesions. Warm and dry. HEAD: Atraumatic. Normocephalic. No temporal or scalp tenderness. EYES: Pupils equal round and reactive. No injection or drainage. ENT: Nose without bleeding, purulent drainage or septal hematoma. Airway patent. NECK: Trachea midline. No lymphadenopathy. Supple, nontender, no meningeal signs. CARDIOVASCULAR: Regular rate and rhythm without murmurs, gallops, or rubs. No JVD. RESPIRATORY: Moderate air entry. Diffuse coarse breath sounds. No appreciable wheezing. GASTROINTESTINAL: Abdomen soft, non-tender, nondistended. No guarding. MUSCULOSKELETAL: Extremities without clubbing, cyanosis, or edema. NEUROLOGICAL: Awake and alert. Cranial nerves II through XII intact. No focal neurological deficits. Normal speech. Laboratory Laboratory Tests Test 08/07/17 14:22 08/07/17 14:25 08/08/17 05:10 White Blood Count 4.1 4.7 Red Blood Count 3.69 4.02 Hemoglobin 11.5 13.0 Hematocrit 34.9 38.0 Mean Corpuscular Volume 94.5 94.6 Mean Corpuscular Hemoglobin 31.2 32.3 Mean Corpuscular Hemoglobin Concent 33.0 34.2 Red Cell Distribution Width 14.4 14.2 Platelet Count 176 191 Mean Platelet Volume 9.2 10.4 Neutrophils (%) (Auto) 62.3 64.2 Lymphocytes (%) (Auto) 22.1 23.2 Monocytes (%) (Auto) 10.4 7.6 Eosinophils (%) (Auto) 4.8 4.5 Basophils (%) (Auto) 0.4 0.5 Neutrophils # (Auto) 2.6 3.0 Lymphocytes # (Auto) 0.9 1.1 Monocytes # (Auto) 0.4 0.4 Eosinophils # (Auto) 0.2 0.2 Basophils # (Auto) 0.0 0.0 CBC Comment DIFF FINAL DIFF FINAL Differential Comment Prothrombin Time 10.1 Prothromb Time International Ratio 1.0 Activated Partial Thromboplast Time 25.8 D-Dimer Quantitative (PE/DVT) 1.44 Blood Urea Nitrogen 26 15 Creatinine 1.00 0.73 Random Glucose 72 95 Total Protein 5.8 Albumin 3.0 Calcium Level 7.8 8.8 Magnesium Level 2.0 Alkaline Phosphatase 47 Aspartate Amino Transf (AST/SGOT) 23 Alanine Aminotransferase (ALT/SGPT) 66 Total Bilirubin 0.3 Sodium Level 145 145 Potassium Level 4.3 4.2 Chloride Level 113 111 Carbon Dioxide Level 24.5 23.9 Anion Gap 8 10 Estimat Glomerular Filtration Rate 55 80 Lactic Acid Level 1.1 Total Creatine Kinase 54 Troponin I LESS THAN 0.02 B-Type Natriuretic Peptide 14 Free Thyroxine 1.23 Free Triiodothyronine (T3) pg/dL 2.01 Thyroid Stimulating Hormone 3rd Gen 0.939 Random Cortisol 6.3 Urine Collection Type CATH Urine Color YELLOW Urine Turbidity SLIGHT Urine pH 7.0 Urine Specific [place] 1.010 Urine Protein NEG Urine Glucose (UA) NEG Urine Ketones NEG Urine Occult Blood NEG Urine Nitrite NEG Urine Bilirubin NEG Urine Urobilinogen 1.0 Urine Leukocyte Esterase NEG Urine Squamous Epithelial Cells 0-5 Urine Transitional Epithelial Cells 0-5 Urine Amorphous Sediment FEW Microscopic Urinalysis Comment CATH-CULT NOT IND Urine Collection Time 1425 Date/Time Source Procedure Growth Status 08/07/17 14:10 Blood Peripheral Aerobic Blood Culture Pending Received 08/07/17 14:10 Blood Peripheral Anaerobic Blood Culture Pending Received Result Diagram: 08/08/17 0510 08/08/17 [address] Angiography 08/07/17 1503 Signed Impressions: CONCLUSION: 1. Negative for pulmonary embolism. Scattered groundglass opacity in both lung s most characteristic of a bronchopneumonia. No effusions. Head CT 08/07/17 133 Signed Impressions: CONCLUSION: 1. Bifrontal encephalomalacia. 2. Status post craniotomies. 3. No acute intracranial abnormality. Chest X-Ray 08/07/178 Signed Impressions: CONCLUSION: Minimal bibasilar patchy infiltrates greater left lower lobe. Caprini VTE Risk Assessment Caprini VTE Risk Assessment: Mod/High Risk (score >= 2) Caprini Risk Assessment Model Point Value = 1 Point Value = 2 Point Value = 3 Point Value = 5 Age 41-60 Minor surgery BMI > 25 kg/m2 Swollen legs Varicose veins or History of unexplained or recurrent spontaneous Oral contraceptives or hormone replacement Sepsis (< 1 month) Serious lung disease, including pneumonia (< 1 month) Abnormal pulmonary function Acute myocardial infarction Congestive heart failure (< 1 month) History of inflammatory bowel disease Medical patient at bed rest Age 61-74 Arthroscopic surgery Major open surgery (> 45 min) Laparoscopic surgery (> 45 min) Malignancy Confined to bed (> 72 hours) Immobilizing plaster cast Central venous access Age >= 75 History of VTE Family history of VTE Factor V Leiden Prothrombin [id number] Lupus anticoagulant Anticardiolipin antibodies Elevated serum homocysteine Heparin-induced thrombocytopenia Other congenital or acquired thrombophilia Stroke (< 1 month) Elective arthroplasty Hip, pelvis, or leg fracture Acute spinal cord injury (< 1 month) Prophylaxis Regimen Total Risk Factor Score Risk Level Prophylaxis Regimen 0-1 Low Early ambulation 2 Moderate Order ONE of the following: *Sequential Compression Device (SCD) *Heparin 5000 units SQ BID 3-4 Higher Order ONE of the following medications: *Heparin 5000 units SQ TID *Enoxaparin/Lovenox 40 mg SQ daily (WT < 150 kg, CrCl > 30 mL/min) *Enoxaparin/Lovenox 30 mg SQ daily (WT < 150 kg, CrCl > 10-29 mL/min) *Enoxaparin/Lovenox 30 mg SQ BID (WT < 150 kg, CrCl > 30 mL/min) AND/OR *Sequential Compression Device (SCD) 5 or more Highest Order ONE of the following medications: *Heparin 5000 units SQ TID (Preferred with Epidurals) *Enoxaparin/Lovenox 40 mg SQ daily (WT < 150 kg, CrCl > 30 mL/min) *Enoxaparin/Lovenox 30 mg SQ daily (WT < 150 kg, CrCl > 10-29 mL/min) *Enoxaparin/Lovenox 30 mg SQ BID (WT < 150 kg, CrCl > 30 mL/min) AND *Sequential Compression Device (SCD) Assessment and Plan Problem List: (1) Bronchopneumonia ICD Code: J18.0 - Bronchopneumonia, unspecified organism (2) COPD exacerbation ICD Code: J44.1 - Obstructive chronic bronchitis with exacerbation Status: Acute (3) Hypotension ICD Code: I95.9 - Hypotension, unspecified Status: Acute Assessment and Plan Ms. Kulkarni is a pleasant 67-year-old female with a history of Graves' disease , autoimmune hepatitis, hypertension, hyperlipidemia who presents to the emergency department on 08/07/2017 due to consistent hypotension for 2 days as well as shortness of breath. ED workup included CT angiogram of the chest which showed bilateral bronchopneumonia. No PE. Troponin was negative. Acute bronchopneumonia COPD Exacerbation -Patient has been on ceftriaxone 2 g every 24 hours and azithromycin 500 mg every 24 hours. -We will switch patient's antibiotics to Levaquin 750 mg daily starting 2017. -Start scheduled and as needed DuoNeb treatments. -Prednisone 20 mg twice daily -Supplemental O2 to keep O2 saturation around 90%. Hypertension -currently resolved Hypertension Hypothyroidism -Will start patient on amlodipine 5 mg daily. -Continue levothyroxine 137 mcg daily. Full code. Na. Physician Certification 2 Midnight Certification Type: Admission for Inpatient Services Order for Inpatient Services The services are ordered in accordance with Medicare regulations or non- Medicare payer requirements, as applicable. In the case of services not specified as inpatient-only, they are appropriately provided as inpatient services in accordance with the 2-midnight benchmark. Estimated LOS (days): 2 days is the estimated time the patient will need to remain in the hospital, assuming treatment plan goals are met and no additional complications. Post-Hospital Plan: Home Problem Qualifiers (1) Hypotension: Qualified Codes: I95.9 - Hypotension, unspecified Rakel Fine DO Aug 08, 2017 10:53
[2017-08-08] MEDS: traMADol HCL 50 MG TAB PO PRN ×2 (10:54→18:33)
[2017-08-08] MEDS ORDERED: predniSONE 20 MG TAB PO ONE (11:00)
[2017-08-08] MEDS ORDERED: RESP: ALBUTEROL 2.5 MG/IPRATROPIUM 0.5 MG NEB (PRN) NEB (11:00)
[2017-08-08] MEDS: RESP: ALBUTEROL 2.5 MG/IPRATROPIUM 0.5 MG NEB (SCH) NEB ×2 (13:08→19:37)
[2017-08-08] MEDS: GABAPENTIN 300 MG CAP PO SCH (16:53)
[2017-08-08] MEDS: ENOXAPARIN SODIUM 40 MG/0.4 ML SYRINGE SQ SCH (16:54)
[2017-08-08] MEDS: predniSONE 20 MG TAB PO SCH (21:52)
--- NOTE | 2017-08-08 23:30 | EKG ---
Date Performed: 08/07/2017 Time Performed: 14:08:16 PTAGE: 67 years EKG: SINUS BRADYCARDIA BORDERLINE ECG PREVIOUS TRACING : 03/02/2017 14.52 Since the previous tracing, no significant change noted DOCTOR: Jeremías Cao Interpretating Date/Time 08/08/2017 23:29:20
[2017-08-09] VITALS (7 sets, daily range): BP systolic 136–168; BP diastolic 63–74; PULSE 89–118; RESP 16–20; TEMP 97.3–99; O2SAT 92–97
[2017-08-09] MEDS: LEVOTHYROXINE SODIUM 25 MCG TAB PO SCH (06:10)
[2017-08-09] MEDS: LEVOTHYROXINE SODIUM 112 MCG TAB PO SCH (06:10)
[2017-08-09] MEDS: traMADol HCL 50 MG TAB PO PRN ×4 (06:10→21:39)
[2017-08-09] MEDS: RESP: ALBUTEROL 2.5 MG/IPRATROPIUM 0.5 MG NEB (SCH) NEB ×3 (07:23→19:19)
[2017-08-09] MEDS: ACETAMINOPHEN 325 MG TAB PO PRN ×2 (08:18→18:18)
[2017-08-09] MEDS: BUDESONIDE-FORMOTEROL 160/4.5 MCG INHALER INH SCH ×2 (08:19→21:33)
[2017-08-09] MEDS: azaTHIOprine 50 MG TAB PO SCH (08:19)
[2017-08-09] MEDS: amLODIPine BESYLATE 5 MG TAB PO SCH (08:20)
[2017-08-09] MEDS: DULoxetine HCl DR 60 MG CAP PO SCH (08:20)
[2017-08-09] MEDS: GABAPENTIN 300 MG CAP PO SCH ×3 (08:20→18:16)
[2017-08-09] MEDS: predniSONE 20 MG TAB PO SCH ×2 (08:20→21:34)
[2017-08-09] MEDS: LEVOFLOXACIN 750 MG TAB PO SCH (08:20)
[2017-08-09] MEDS: PANTOPRAZOLE SOD 40 MG DELAYED RELEASE TAB PO SCH (08:20)
[2017-08-09] MEDS: busPIRone HCL 10 MG TAB PO SCH ×2 (08:20→21:34)
[2017-08-09] MEDS: SUCRALFATE 1 GM TAB PO SCH ×4 (08:21→21:35)
[2017-08-09] MEDS: SODIUM CHLORIDE 0.9% FLUSH 10 ML FLUSH IV FLUSH SCH ×2 (08:25→21:31)
[2017-08-09] MEDS ORDERED: ONDANSETRON HCL 4 MG/2 ML VIAL IV PUSH ONE (10:30)
[2017-08-09] MEDS: guaiFENesin E.R. 600 MG TAB PO SCH ×2 (10:59→21:34)
--- NOTE | 2017-08-09 11:15 | HHI.PR ---
Subjective Remarks Patient seen and evaluated for acute COPD exacerbation and acute pneumonia with failed outpatient treatment. Complaining of some nausea this morning improved usually with ondansetron at home Patient 92% at rest on room air and complaining of wheezing Objective Vitals Vital Signs Date Time Temp Pulse Resp B/P (MAP) Pulse Ox O2 Delivery O2 Flow Rate FiO2 08/09/17 08:26 97.7 111 16 168/74 (105) 92 08/09/17 07:24 97 21 08/09/17 00:00 97.3 89 20 138/74 (95) 94 08/08/17 20:00 97.1 81 20 141/65 (90) 95 08/08/17 19:37 96 21 08/08/17 16:00 98.0 85 18 138/70 (92) 94 08/08/17 12:49 97.8 73 18 146/73 (97) 95 180/83 (115) 156/71 (99) 08/08/17 12:31 93 I/O 08/08/17 08/08/17 08/08/17 08/09/17 08/09/17 08/09/17 07:00 15:00 23:00 07:00 15:00 23:00 Intake Total 1240 ml 944 ml 720 ml 2 ml Balance 1240 ml 944 ml 720 ml 2 ml Intake Oral 240 ml 720 ml IV Total 1000 ml 944 ml 2 ml # Voids 3 4 # Bowel Movements 0 1 Result Diagram: 08/08/17 0510 08/08/17 [address] Angiography 08/07/17 1503 Signed Impressions: CONCLUSION: 1. Negative for pulmonary embolism. Scattered groundglass opacity in both lung s most characteristic of a bronchopneumonia. No effusions. Head CT 08/07/17 1338 Signed Impressions: CONCLUSION: 1. Bifrontal encephalomalacia. 2. Status post craniotomies. 3. No acute intracranial abnormality. Chest X-Ray 08/07/171337 Signed Impressions: CONCLUSION: Minimal bibasilar patchy infiltrates greater left lower lobe. Objective Remarks GENERAL: This is a well-nourished, well-developed patient, nauseated and short of breath CARDIOVASCULAR: Regular rate and rhythm without murmurs, gallops, or rubs. RESPIRATORY: Scattered wheezes and coughing GASTROINTESTINAL: Abdomen soft, non-tender, nondistended. Normal active bowel sounds MUSCULOSKELETAL: Extremities without clubbing, cyanosis, or edema. NEURO: Alert & Oriented x4 to person, place, time, situation. Moves all ext x4 A/P Problem List: (1) Bronchopneumonia ICD Code: J18.0 - Bronchopneumonia, unspecified organism Plan: Continue with Levaquin and treatment for COPD (2) COPD exacerbation ICD Code: J44.1 - Obstructive chronic bronchitis with exacerbation Status: Acute Plan: Continue with IV steroids, bronchodilators by nebulizer and antibiotics (3) Hypotension ICD Code: I95.9 - Hypotension, unspecified Status: Acute Plan: Patient's home medications for blood pressure have been held due to hypotension. Blood pressure now elevated Resume home medications Assessment and Plan Continue antithyroid medicine and pain medicines Discharge Planning Discharge home 1-2 days pending progress Problem Qualifiers (1) Hypotension: Qualified Codes: I95.9 - Hypotension, unspecified Cynthia Lawler MD Aug 09, 2017 11:15
[2017-08-09] MEDS ORDERED: ARTIFICIAL TEARS OPTH SOLN 15 ML BTL EACH EYE PRN (11:30)
[2017-08-09] MEDS: ENOXAPARIN SODIUM 40 MG/0.4 ML SYRINGE SQ SCH (18:16)
[2017-08-09] MEDS: PROMETHAZINE HCL 25 MG TAB PO PRN (18:21)
[2017-08-09] MEDS ORDERED: LISINOPRIL 10 MG TAB PO SCH (21:00)
[2017-08-09] MEDS: methylPREDNISolone SOD SUCC 40 MG/1 ML VIAL IV PUSH SCH (21:32)
[2017-08-09] MEDS: PROPRANOLOL HCL 20 MG TAB PO SCH (21:33)
[2017-08-10] VITALS: BP 128/60; PULSE 88; RESP 22; TEMP 97.6; O2SAT 95
[2017-08-10 04:00] VITALS: BP 120/58; PULSE 66; RESP 22; TEMP 97.6; O2SAT 95
[2017-08-10] MEDS: traMADol HCL 50 MG TAB PO PRN (06:44)
[2017-08-10] MEDS: LEVOTHYROXINE SODIUM 112 MCG TAB PO SCH (06:44)
[2017-08-10] MEDS: LEVOTHYROXINE SODIUM 25 MCG TAB PO SCH (06:44)
[2017-08-10] MEDS: PROMETHAZINE HCL 25 MG TAB PO PRN (06:45)
[2017-08-10 07:20] VITALS: O2SAT 93
[2017-08-10] MEDS: RESP: ALBUTEROL 2.5 MG/IPRATROPIUM 0.5 MG NEB (SCH) NEB ×2 (07:20→13:26)
[2017-08-10 07:50] VITALS: BP 135/66; PULSE 78; RESP 20; TEMP 96.3; O2SAT 92
[2017-08-10] MEDS: BUDESONIDE-FORMOTEROL 160/4.5 MCG INHALER INH SCH (08:05)
[2017-08-10] MEDS: GABAPENTIN 300 MG CAP PO SCH (08:06)
[2017-08-10] MEDS: predniSONE 20 MG TAB PO SCH (08:07)
[2017-08-10] MEDS: SUCRALFATE 1 GM TAB PO SCH (08:07)
[2017-08-10] MEDS: azaTHIOprine 50 MG TAB PO SCH (08:07)
[2017-08-10] MEDS: LEVOFLOXACIN 750 MG TAB PO SCH (08:08)
[2017-08-10] MEDS: amLODIPine BESYLATE 5 MG TAB PO SCH (08:08)
[2017-08-10] MEDS: PANTOPRAZOLE SOD 40 MG DELAYED RELEASE TAB PO SCH (08:08)
[2017-08-10] MEDS: PROPRANOLOL HCL 20 MG TAB PO SCH (08:08)
[2017-08-10] MEDS: guaiFENesin E.R. 600 MG TAB PO SCH (08:08)
[2017-08-10] MEDS: busPIRone HCL 10 MG TAB PO SCH (08:08)
[2017-08-10] MEDS: DULoxetine HCl DR 60 MG CAP PO SCH (08:08)
[2017-08-10] MEDS: methylPREDNISolone SOD SUCC 40 MG/1 ML VIAL IV PUSH SCH (08:09)
[2017-08-10] MEDS: SODIUM CHLORIDE 0.9% FLUSH 10 ML FLUSH IV FLUSH SCH (08:12)
[2017-08-10] MEDS ORDERED: LEVA750T9 PO (10:59)
[2017-08-10] MEDS ORDERED: AMLO5 PO (10:59)
[2017-08-10] MEDS ORDERED: PRED5PAK PO (10:59)
[2017-08-10] MEDS ORDERED: guaiFENesin ER PO (10:59)
--- NOTE | 2017-08-10 10:59 | HHI.DCPOC ---
Discharge Care Plan Diagnosis: (1) COPD exacerbation (2) Pneumonia (3) Hypotension Goals to Promote Your Health * To prevent worsening of your condition and complications * To maintain your health at the optimal level Directions to Meet Your Goals Take your medications as prescribed Follow your dietary instruction Follow activity as directed Keep your appointments as scheduled Take your immunizations and boosters as scheduled If your symptoms worsen call your PCP, if no PCP go to Urgent Care Center or Emergency Room Smoking is Dangerous to Your Health. Avoid second hand smoke Call the 24-hour hour crisis hotline for domestic abuse at Cynthia Lawler MD Aug 10, 2017 10:59
--- NOTE | 2017-08-10 11:01 | HHI.DS ---
Discharge Summary Admission Date Aug 07, 2017 at 17:45 Discharge Date: Aug 10, 2017 Admitting Diagnosis pneumonia, hypotension (1) Bronchopneumonia ICD Code: J18.0 - Bronchopneumonia, unspecified organism (2) COPD exacerbation ICD Code: J44.1 - Obstructive chronic bronchitis with exacerbation Status: Acute (3) Hypotension ICD Code: I95.9 - Hypotension, unspecified Status: Acute Procedures none Brief History - From Admission Ms. Kulkarni is a pleasant 67-year-old female with a history of Graves' disease , cervical cancer, diabetes mellitus who presents to the emergency department on 08/07/2017 due to low blood pressure that started 2 days prior to this admission. Patient stopped taking her hypertensive medications after she noticed her blood pressure in the 60s systolic. She also reports shortness of breath for 2 days as well as numbness in her face. Additionally she also reports weakness, dizziness, headache, numbness and tingling throughout her body. On arrival BP was 67/48. ED work up indicates ground glass opacity of the lungs consistent with bronchopneumonia. Patient was started on Ceftriaxone and Azithromycin. CBC/BMP: 08/08/17 0510 08/08/17 0510 Significant Findings Laboratory Tests Test 08/07/17 14:22 08/07/17 14:25 08/08/17 05:10 Red Blood Count 3.69 MIL/MM3 (4.00-5.30) Hemoglobin 11.5 GM/DL (11.6-15.3) Hematocrit 34.9 % (35.0-46.0) Monocytes (%) (Auto) 10.4 % (0.0-8.0) Eosinophils (%) (Auto) 4.8 % (0.0-4.0) 4.5 % (0.0-4.0) Lymphocytes # (Auto) 0.9 TH/MM3 (1.0-4.8) D-Dimer Quantitative (PE/DVT) 1.44 MG/L FEU (0.00-0.50) Blood Urea Nitrogen 26 MG/DL (7-18) Random Glucose 72 MG/DL (74-106) Total Protein 5.8 GM/DL (6.4-8.2) Albumin 3.0 GM/DL (3.4-5.0) Calcium Level 7.8 MG/DL (8.5-10.1) Alanine Aminotransferase (ALT/SGPT) 66 U/L (10-53) Chloride Level 113 MEQ/L (98-107) 111 MEQ/L (98-107) Estimat Glomerular Filtration Rate 55 ML/MIN (>89) 80 ML/MIN (>89) Troponin I LESS THAN 0.02 NG/ML LESS THAN 0.02 NG/ML Free Triiodothyronine (T3) pg/dL 2.01 PG/ML (2.18-3.98) PE at Discharge GENERAL: This is a well-nourished, well-developed patient, nauseated and short of breath CARDIOVASCULAR: Regular rate and rhythm without murmurs, gallops, or rubs. RESPIRATORY: Scattered wheezes and coughing GASTROINTESTINAL: Abdomen soft, non-tender, nondistended. Normal active bowel sounds MUSCULOSKELETAL: Extremities without clubbing, cyanosis, or edema. NEURO: Alert & Oriented x4 to person, place, time, situation. Moves all ext x4 Pt update on day of discharge doing well dc plans discussed walk test passed Hospital Course Patient was seen and treated for pneumonia and copd exacerbation she did well and was d/c home Pt Condition on Discharge: Good Discharge Disposition: Discharge Home Discharge Time: <= 30 minutes Discharge Instructions DIET: Follow Instructions for: Heart Healthy Diet Activities you can perform: Regular-No Restrictions Follow up Referrals: PCP Follow-up - 1 Week New Medications: Prednisone (21) 5 mg tab Dose Pack (Prednisone (21) 5 mg tab Dose Pack) 5 Mg Dspk 5 MG PO DIRECTED for Inflammation, #1 DSPK 0 Refills Amlodipine (Norvasc) 5 Mg Tab 5 MG PO DAILY for Blood Pressure Management, #31 TAB Levofloxacin (Levaquin) 750 Mg Tablet 750 MG PO DAILY for Infection, #3 TAB [guaiFENesin ER] () 600 MG TABCR 600 MG PO BID for Cough, #14 TAB-CAP Continued Medications: Albuterol 18 GM Inh (Ventolin Hfa 18 GM Inh) 90 Mcg/Act Aer 2 PUFF INH BID PRN for SHORTNESS OF BREATH, #1 INHALER 0 Refills Ascorbic Acid (C 500) 500 Mg Tab 1 TAB PO BID Azathioprine (Azathioprine) 50 Mg Tab 150 MG PO DAILY for Immunosuppression, #60 TAB 0 Refills Hazardous agent use appropriate precautions for handling and disposal. Budesonide-Formoterol Inh (Symbicort Inh) 160-4.5 Mcg/Act Aero 2 PUFF INH Q12HR, #1 INHALER 0 Refills Buspirone (Buspirone) 10 Mg Tab 10 MG PO BID for Anxiety, TAB 0 Refills Calcium Carbonate-Cholecalciferol (Calcium 600 with Vitamin D) 600-400 mg-Unit Tab 1 TAB PO DAILY for Calcium Supplement, TAB 0 Refills Cholecalciferol (D 2000) 2,000 Unit Tab 5000 UNITS PO DAILY Diclofenac Sodium DR (Diclofenac Sodium DR) 75 Mg Tabdr 75 MG PO BID, #60 TAB 0 Refills Dicyclomine (Dicyclomine) 10 Mg Cap 10 MG PO TID PRN for Bowel Management, CAP [address] (Cymbalta DR) 60 Mg Capdr 60 MG PO DAILY, #30 CAP [address] (Nexium) 40 Mg Capdr 40 MG PO DAILY, CAP 0 Refills Gabapentin (Gabapentin) 600 Mg Tab 600 MG PO TID, #90 TAB 0 Refills Ipratropium-Albuterol Neb (Duoneb) 0.5-2.5 Mg/3 Ml Neb 1 NEBULE INH Q4HR NEB PRN for SHORTNESS OF BREATH, #120 NEBULE 0 Refills Levothyroxine (Levothyroxine) 137 Mcg Tab 137 MCG PO DAILY for Thyroid, #30 TAB 0 Refills Lisinopril (Lisinopril) 10 Mg Tab 10 MG PO HS, #30 TAB 0 Refills Loratadine (Allergy Relief) 10 Mg Tab 10 MG PO DAILY, TAB Multiple Vitamin (Multi-Vitamin Daily) 1 Tab Tab 1 TAB PO DAILY for Nutritional Supplement, TAB 0 Refills Polyethylene Glycol-Propylene Glycol Opth Drp (Systane Opth Drops) 0.4-0.3% Soln 1-2 DROP EACH EYE PRN PRN for DRY EYE, #1 BOTTLE 0 Refills Prochlorperazine Maleate (Prochlorperazine Maleate) 10 Mg Tab 10 MG PO TID PRN for NAUSEA OR VOMITING, TAB 0 Refills Promethazine (Promethazine) 12.5 Mg Tab 12.5 MG PO Q4H PRN for NAUSEA OR VOMITING, TAB 0 Refills Propranolol (Propranolol) 20 Mg Tab 20 MG PO BID, #60 TAB 0 Refills Sucralfate (Sucralfate) 1 Gm Tab 1 GM PO QID for Duodenal ulcer, #120 TAB 0 Refills on empty stomach Tizanidine (Tizanidine) 4 Mg Cap 4 MG PO TID for Muscle Spasm, CAP 0 Refills Tramadol (Tramadol) 50 Mg Tab 100 MG PO Q6H PRN for PAIN, TAB 0 Refills Cynthia Lawler MD Aug 10, 2017 11:01
[2017-08-10 11:50] VITALS: BP 133/70; PULSE 74; RESP 20; TEMP 97.9; O2SAT 91
== END 2017-08-10 13:39 | disposition home or self-care (01) | DRG 194 ==
LOC: PHED 12:58 → PHEDA 17:45 → PH3A 20:05
PROVIDERS: ADMIT Hospitalist; ATTEND Hospitalist
DX: J18.0 Bronchopneumonia, unspecified organism (principal); J44.1 Chronic obstructive pulmonary disease with (acute) exacerbation; I95.9 Hypotension, unspecified; J44.0 Chronic obstructive pulmonary disease with (acute) lower respiratory infection; E78.5 Hyperlipidemia, unspecified; I10 Essential (primary) hypertension; E05.00 Thyrotoxicosis with diffuse goiter without thyrotoxic crisis or storm; M54.9 Dorsalgia, unspecified; G89.29 Other chronic pain; E11.9 Type 2 diabetes mellitus without complications; E03.9 Hypothyroidism, unspecified; Z88.5 Allergy status to narcotic agent; Z88.8 Allergy status to other drugs, medicaments and biological substances; Z91.030 Bee allergy status; Z85.41 Personal history of malignant neoplasm of cervix uteri
CPT/HCPCS: 70450; 71045; 71275; 80048; 80053; 81001; 82533; 82550; 83605; 83735; 83880; 84439; 84443; 84481; 84484; 85025; 85379; 85610; 85730; 87040; 87070; 87205; 93005; 94618; 94640; 94664; 96360; 96361; J0696; J1650; J2405; J2920; J7030; J7500; J7512; P9612; Q0169; Q9967